=== PATIENT | female | born 1955 | race Caucasian/White ===

== ENCOUNTER 2017-04-10 10:34 | Emergency (ER) | payer MEDICAID ==
[2016-06-21 13:06] VITALS: BMI 32.0
[~2017-04-10 10:34] MED LIST: CRESTOR20 MG PO; GLUCOPHAGE1000 MG PO; HYDROCODONE-APA1 TAB PO; LOPID600 MG PO; METOPROLOL TART50 MG PO; OMEPRAZOLE20 M1 PO; TRULICITY1.5 MG/0.5 SC; ULTRAM50 MG PO; ZESTRIL40 MG PO
[2017-04-10 12:24] LABS: APPEARANCE CLEAR (CLEAR); COLOR YELLOW (YELLOW)
[2017-04-10 12:25] LABS: BILIRUBIN NEGATIVE (NEGATIVE); GLUCOSE NEGATIVE (NEGATIVE); KETONE NEGATIVE (NEGATIVE); LEUKOCYTE ESTERASE 1+ (NEGATIVE); NITRITE NEGATIVE (NEGATIVE); PROTEIN TRACE mg/dL (NEGATIVE); UROBILINOGEN NORMAL (NORMAL)
[2017-04-10 12:36] LABS: BACTERIA FEW /hpf (NONE SEEN); GRANULAR CAST RARE /lpf (NONE SEEN); HYALINE CAST OCC /lpf (NONE SEEN); MUCUS <1+ /lpf (NONE SEEN); RED CELLS - URINE OCC /hpf (0-5); WHITE CELLS - URINE 0-5 /hpf (0-5)
[2017-04-10 13:29] LABS: BASOPHILS 0.8 % (0-2); EOSINOPHILS 3.7 % (0-7); HEMATOCRIT 34.4 % (36.0-48.0); HEMOGLOBIN 11.1 g/dL (12-16); IMMATURE GRANULOCYTES 0.3 % (0-5); LYMPHOCYTES 43.8 % (15-50); MCH 26.5 pg (26.0-34.0); MCHC 32.3 g/dL (31.0-37.0); MCV 82.1 fL (80.0-100.0); MEAN PLATELET VOLUME 9.1 fL (7.4-10.4); MONOCYTES 8.6 % (2-11); NEUTROPHILS 42.8 % (40-80); PLATELET COUNT 349 10x3/uL (130-400); RBC 4.19 10x6/uL (4.00-5.40); WBC 6.3 10x3/uL (4.8-10.8)
[2017-04-10 13:48] LABS: ALBUMIN 4.1 g/dL (3.4-5.0); BILIRUBIN - DIRECT 0.05 mg/dL (0.00-0.30); BILIRUBIN - INDIRECT 0.21 mg/dL (0.00-1.00); BILIRUBIN - TOTAL 0.26 mg/dL (0.2-1.3); CALCIUM 9.2 mg/dL (8.5-10.1); CARBON DIOXIDE 23.9 mmol/L (21.0-32.0); CREATININE - SERUM 1.4 mg/dL (0.6-1.3); MAGNESIUM - SERUM 1.7 mg/dL (1.8-2.4); POTASSIUM - SERUM 4.9 mmol/L (3.5-5.1); PROTEIN - SERUM 8.1 g/dL (6.4-8.2)
== END 2017-04-10 15:27 | disposition home or self-care (01) ==
LOC: D.ER 10:34
PROVIDERS: Emergency Medicine; Physician Assistant Medical
DX: N39.0 Urinary tract infection, site not specified (principal); D35.00 Benign neoplasm of unspecified adrenal gland; R10.9 Unspecified abdominal pain

== ENCOUNTER → 2017-04-28 10:55 | Outpatient (CLI) | payer MEDICAID ==
[2016-06-21 13:06] VITALS: BMI 32.0
== END | disposition home or self-care (01) ==
LOC: D.LAB 10:55
DX: D35.00 Benign neoplasm of unspecified adrenal gland (principal)

== ENCOUNTER → 2017-06-20 15:00 | Outpatient (CLI) | payer MEDICAID ==
[2016-06-21 13:06] VITALS: BMI 32.0
== END | disposition home or self-care (01) ==
LOC: D.MAMMO 11:30
DX: Z12.31 Encounter for screening mammogram for malignant neoplasm of breast (principal)

== ENCOUNTER 2017-10-22 17:28 | Emergency (ER) | payer MEDICAID ==
[2016-06-21 13:06] VITALS: BMI 32.0
== END 2017-10-22 19:37 | disposition home or self-care (01) ==
LOC: D.ER 17:28
DX: M25.551 Pain in right hip (principal)

== ENCOUNTER → 2017-11-10 07:38 | Outpatient (CLI) | payer MEDICAID ==
[2016-06-21 13:06] VITALS: BMI 32.0
== END | disposition home or self-care (01) ==
LOC: D.NM 07:38
DX: M02.30 Reiter's disease, unspecified site (principal)

== ENCOUNTER → 2018-05-12 08:29 | Outpatient (CLI) | payer MEDICAID ==
[2016-06-21 13:06] VITALS: BMI 32.0
[2018-05-12 09:33] LABS: CREATININE - SERUM 1.2 mg/dL (0.6-1.3)
== END | disposition home or self-care (01) ==
LOC: D.CT 08:29
PROVIDERS: Family Medicine Adult Medicine
DX: D35.01 Benign neoplasm of right adrenal gland (principal)

== ENCOUNTER → 2018-05-22 09:37 | Outpatient (CLI) | payer MEDICAID ==
[2016-06-21 13:06] VITALS: BMI 32.0
== END | disposition home or self-care (01) ==
LOC: D.US 09:37
DX: I12.9 Hypertensive chronic kidney disease with stage 1 through stage 4 chronic kidney disease, or unspecified chronic kidney disease (principal); N18.3 Chronic kidney disease, stage 3 (moderate); E11.22 Type 2 diabetes mellitus with diabetic chronic kidney disease; M02.30 Reiter's disease, unspecified site; Z68.34 Body mass index [BMI] 34.0-34.9, adult

== ENCOUNTER → 2019-05-21 08:13 | Outpatient (CLI) | payer MEDICAID ==
[2016-06-21 13:06] VITALS: BMI 32.0
[~2019-05-21 08:13] MED LIST changes: +ASPIRIN81 MG PO; +BAYER CHEWABLE81 MG PO; +KLONOPIN1 MG PO; +PLAVIX75 MG PO; +TRESIBA FL100 UNIT/1 SC
--- NOTE | 2019-05-29 13:38 | ST ---
PATIENT:NARCISA ROBLES MEDICAL RECORD: [id number] SEX: F LOCATION:[facility] ORDER #: ADMISSION DATE: 05/21/19 AGE OF PATIENT: 64 REFERRING PHYSICIAN: INTERPRETING PHYSICIAN: SARANYA MCCAULEY MD DATE OF SERVICE: 05/21/2019 INDICATIONS: Angina and coronary artery disease, hypertension, hyperlipidemia, diabetes. DESCRIPTION OF THE PROCEDURE: She was exercised on a standard Agustín protocol for 5 minutes, achieving greater than 85% max target heart rate response with 27 mCi of sestamibi injected at peak stress, 8 mCi used previously for rest images. FINDINGS: Gated SPECT reveals a preserved ejection fraction at 67% with good wall motioning and thickening and brightening throughout all segments. SPECT Imaging: Cardiolite was used as myocardial perfusion agent. There is reversibility anteriorly, laterally as well as inferiorly. This includes the basal, mid, apical anterior segments basal, mid, apical inferior segments, apical lateral, mid lateral, basal lateral segments. The degree of reversibility is moderate to severe. The amount of myocardium involved is very large. OVERALL IMPRESSION: This is a high-risk markedly abnormal nuclear stress test, reversibility throughout the anterior, lateral, and inferior segments suggestive of multivessel hemodynamically significant coronary artery disease. TRANSINT:[id number] Voice Confirmation ID: [id number] DOCUMENT ID: [id number] SARANYA MCCAULEY MD at 1338 CC: FORD GARCIA MD [id number] DICTATION DATE: 05/22/19 1716 PORCELAIN SLUSHER: 05/23/19 0109 DEP CLI 05/21/19 [place] [id number]
== END | disposition home or self-care (01) ==
LOC: D.HCCARDIO 08:13
PROVIDERS: ATTEND Internal Medicine Interventional Cardiology
DX: I20.9 Angina pectoris, unspecified (principal)

== ENCOUNTER 2019-05-30 11:17 | Outpatient (CLI) | payer MEDICAID ==
[~2019-05-30] VITALS: Ht 165.1 cm; Wt 88.6 kg
--- NOTE | ~2019-05-30 | HEMODYNAMI ---
PATIENT:NARCISA ROBLES MEDICAL RECORD: [id number] : 59 LOCATION:[facility] ADMISSION DATE: 05/30/19 Generatedon:05/30/201915:08 Patient name: NARCISA ROBLES Patient #: [id number] SSN: [id number] : 1955 Date of study: 05/30/2019 Page: Of Hemodynamic Procedure Report Patient Data Patient Demographics Procedure consent was obtained First Name: NARCISA Gender: Female Last Name: MARGARET : 1955 Middle Initial: DUSTY Age: 64 year(s) Patient #: [id number] Race: Unknown SSN: [id number] Additional ID: [id number] Contact details [address]: [address] [place] [address] State: [place] City: [place] Zip code: [address] Past Medical History Allergies Allergen Reaction Date Comments Reported Other allergy 05/30/2019 sulfa Admission Admission Data Admission Date: 05/30/2019 Admission Time: 11:17 Arrival Date: 05/30/2019 Arrival Time: 0:00 Admit Source: Other Insurance Payor: Private health insurance [facility] #: [id number] Height (in.): 64.96 BSA: 1.95 (m2) Height (cm.): 165 BMI: 32.32 (kg/m2) Weight (lbs.): 194.01 Weight (kg.): 88 Lab Results Lab Result Date: 05/30/2019 Lab Result Time: 13:15 Biochemistry Name Units Result Min Max BUN mg/dl 34 --(----)-* 7 18 Creatinine mg/dl 1.5 --(----)-* 0.6 1.3 CBC Name Units Result Min Max Hematocrit % 34.2 *-(----)-- 42 54 Hemoglobin g/dl 11.3 *-(----)-- 13.5 17.5 Procedure Procedure Types Cath Procedure Diagnostic Procedure LHC LHC w/Coronaries Sedation Charges Moderate Sedation up to 30 minutes PCI Procedure Coronary Stent Coronary Stent Initial Procedure Description Procedure Date Procedure Date: 05/30/2019 Procedure Start Time: 14:31 Procedure End Time: 15:05 Procedure Staff Name Function Damian Ku MD Performing Physician Vel Vizcarra RT Monitor Jeanette Rodriguez RT Scrub Jaguar Rodriguez RN Nurse Procedure Data Cath Procedure Fluoroscopy Diagnostic fluoroscopy Total fluoroscopy Time: 8.4 time: 8.4 min min Diagnostic fluoroscopy Total fluoroscopy dose: dose: 1135 mGy 1135 mGy Contrast Material Contrast Material Type Amount (ml) Isovue 300 121 Entry Location Entry Primary Successful Side Size Upsize Upsize Entry Closure Kinney ccessful Closure Location (Fr) 1 (Fr) 2 (Fr) Remarks Device Remarks Radial Right 6 Fr Mechanical artery Short Compression Estimated blood loss: 10 ml Diagnostic catheters Device Type Used For End Catheter Placement DIAGNOSTIC [place] 110cm 5 Procedure Fr catheter ([id number]) Procedure Complications No complications Procedure Medications Medication Administration Route Dosage 0.9% NaCl I.V. 100 ml/hr Oxygen etCO2 Nasal cannula 2 l/min Heparin Flush Bag added to field 2 bags (1000units/500ml NS) Lidocaine 2% added to field 20 Radial Cocktail added to field 1 syringe (Verapamil 2mg/Nitro 400mcg/Heparin 1500units) Versed I.V. 2 mg Fentanyl I.V. 100 mcg Benadryl I.V. 50 mg Versed I.V. 2 mg Radial Cocktail I.A. 1 syringe (Verapamil 2mg/Nitro 400mcg/Heparin 1500units) Heparin Bolus I.V. 5000 units Integrilin (Bolus I.V. 7.9 ml 2mg/ml) Integrilin (Bolus wasted 2.1 ml 2mg/ml) Fentanyl I.V. 50 mcg Fentanyl I.V. 50 mcg Plavix P.O. 600 mg Hemodynamics Rest BSA: 1.95 (m2) HGB: 11.3 (g/dl) O2 Consumption: Estimated: 178.57 (ml/min) O2 Co nsumption indexed: Estimated:91.57 (ml/min/m) Heart Rate: 63 (bpm) Pressure Samples Time Site Value (mmHg) Purpose Heart Use Rate(bpm) 14:34 LV 140/22,15 Snapshot 94 14:35 AO 144/89(114) Pullback 74 Gradients Valve Time Site Site 2 Mean SEP/DFP Peak To Heart Use 1 (mmHg) (sec/min) Peak Rate (mmHg) (bpm) Aortic 14:35 LV AO 74 144/89(114) Snapshots Pre Cath Intra NCS Post Cath Vital Signs Time Heart Resp SPO2 etCO2 NIBP (mmHg) Rhythm Pain Sedation Rate (ipm) (%) (mmHg) Status Level (bpm) 14:23:10 69 12 94 0 159/113(138) NSR 0 (11) 10(A) , No pain 14:27:26 71 12 92 8.2 152/97(127) NSR 0 (11) 10(A) , No pain 14:31:38 79 15 98 0 143/95(118) NSR 0 (11) 10(A) , No pain 14:35:45 77 29 98 1.4 127/87(96) NSR 0 (11) 10(A) , No pain 14:39:53 73 17 96 32.8 133/81(100) NSR 0 (11) 10(A) , No pain 14:44:56 69 13 97 35 143/82(111) NSR 0 (11) 10(A) , No pain 14:49:08 66 18 99 33.6 151/85(116) NSR 0 (11) 10(A) , No pain 14:53:26 66 18 97 39.5 147/74(110) NSR 0 (11) 10(A) , No pain 14:57:38 65 16 98 38 151/93(127) NSR 0 (11) 10(A) , No pain 15:01:52 70 14 99 19.3 170/97(150) NSR 0 (11) 10(A) , No pain 15:06:12 63 2 99 41 167/90(144) NSR 0 (11) 10(A) , No pain Medications Time Medication Route Dose Verified Delivered Reason Not es Effectiveness by by 14:21:13 0.9% NaCl I.V. 100 Jaguar Jaguar Per physician ml/hr Jennifer Rodriguez RN RN 14:21:22 Oxygen etCO2 2 l/min Jaguar Jaguar for low 02 sats Nasal Jennifer Rodriguez cannula RN RN 14:21:32 Heparin Flush added 2 bags Jaguar Jaguar used for Bag to Jennifer Rodriguez procedure (1000units/500ml field RN RN NS) 14:21:43 Lidocaine 2% added 20ml Jaguar Jaguar for local to vial Lorigan Lorcristhian anesthetic RN RN 14:21:55 Radial Cocktail added 1 Jaguar Jaguar used for (Verapamil to syringe Jennifer Rodriguez procedure 2mg/Nitro field ARGUETA RN 400mcg/Heparin 1500units) 14:29:03 Versed I.V. 2 mg Jaguar Jaguar for sedation Jennifer Rodriguez RN, RN 14:29:11 Fentanyl I.V. 100 mcg Jaguar Jaguar for sedation Jennifer Rodriguez RN RN 14:31:14 Benadryl I.V. 50 mg Jaguar Jaguar Per physician Jennifer Rodriguez RN RN 14:31:22 Versed I.V. 2 mg Jaguar Jaguar for sedation Jennifer Rodriguez RN RN 14:33:16 Radial Cocktail I.A. 1 Jaguar Damian for (Verapamil syringe Lorigan Elmira vasodilation 2mg/Nitro ELLIE MOYA 400mcg/Heparin 1500units) 14:43:06 Heparin Bolus I.V. 5000 Jaguar Jaguar for units Jennifer Rodriguez anticoagulation RN RN 14:43:29 Integrilin I.V. 7.9 ml Jaguar Jaguar for (Bolus 2mg/ml) Jennifer Rodriguez antiplatelet RN RN therapy 14:43:41 Integrilin wasted 2.1 ml Jaguar Jaguar to sharp's (Bolus 2mg/ml) Jennifer Rodriguez RN RN 14:46:40 Fentanyl I.V. 50 mcg Jaguar Jaguar for sedation Jennifer Rodriguez RN RN 14:50:42 Fentanyl I.V. 50 mcg Jaguar Jaguar for sedation Jennifer Rodriguez RN RN 15:05:14 Plavix P.O. 600 mg Ajguar Jaguar for Jennifer Rodriguez antiplatelet RN RN therapy Procedure Log Time Note 14:00:53 Jaguar Rodriguez RN sent for patient. Start room use. 14:05:46 Informed consent obtained and on chart 14:08:30 Patient allergic to Other allergysulfa 14:08:37 Admit Source: Other 14:09:11 Arrival Date: 05/30/2019 12:00:00 AM 14:09:43 Insurance Payor : Private health insurance 14:11:47 Procedure Status Elective Heart Cath (OP). 14:11:57 Time tracking: Regular hours (M-F 7:00 - 5:00) 14:12:00 Plan of Care:Hemodynamics will remain stable., Cardiac rhythm will remain stable., Comfort level will be maintained., Respiratory function will remain adequate., Patient/ family verbilizes understanding of procedure., Procedure tolerated without complication., Recovers from procedure without complications.. 14:12:05 Patient received from Pre/Post Procedure Room to [facility] 2 Alert and oriented. Tansferred to table in Supine position. 14:12:06 Warm blankets applied, and aleta hugger turned on for patient comfort. 14:12:06 Correct patient and procedure confirmed by team. 14:12:06 ECG and BP/O2 sat monitors applied to patient. 14:12:23 H&P Date Dictated: 05/14/2019 Within 30 days and on chart., H&P Addendum completed by physician on day of procedure. (MUST COMPLETE FOR ALL OUTPATIENTS). 14:21:13 0.9% NaCl 100 ml/hr I.V. was administered by Jaguar Rodriguez RN; Per physician; Verbal order read back and verified. 14:21:22 Oxygen 2 l/min etCO2 Nasal cannula was administered by Jaguar Rodriguez RN; for low 02 sats; Verbal order read back and verified. 14:21:32 Heparin Flush Bag (1000units/500ml NS) 2 bags added to field was administered by Jaguar Rodriguez RN; used for procedure; Verbal order read back and verified. 14:21:43 Lidocaine 2% 20ml vial added to field was administered by Jaguar Rodriguez RN; for local anesthetic; Verbal order read back and verified. 14:21:55 Radial Cocktail (Verapamil 2mg/Nitro 400mcg/Heparin 1500units) 1 syringe added to field was administered by Jaguar Rodriguez RN; used for procedure; Verbal order read back and verified. 14:22:00 Vital chart was started 14:24:21 Baseline sample Acquired. 14:24:25 Rhythm: sinus rhythm 14:24:27 Full Disclosure recording started 14:24:28 Pre-procedure instructions explained to patient. 14:24:28 Pre-op teaching completed and patient verbalized understanding. 14:24:32 Family in waiting room. 14:24:33 Patient NPO since Midnight. 14:24:34 Is the patient allergic to Iodine/contrast media? No. 14:24:35 Is patient on blood thinner?No 14:24:36 Patient diabetic? Yes. 14:24:37 If diabetic: On Metformin? No 14:24:41 Previous problem with sedation/anesthesia? No ? 14:24:43 Snore? Yes 14:24:43 Sleep apnea? No 14:24:44 Deviated septum? No 14:24:45 Opens mouth fully? Yes 14:24:45 Sticks out tongue? Yes 14:24:47 Airway obstruction? No ? 14:24:51 Dentures? No ? 14:24:54 Pre procedure: right dorsailis pedis pulse 2+ Normal; easily identifiable; not easily obliterated 14:24:59 Patient pain scale 5/10 ?. 14:25:05 IV patent on arrival in right antecubital with 0.9% NaCl at [facility]. 14:26:06 Lab Result : BUN 34 mg/dl 14:26:06 Lab Result : Hemoglobin 11.3 g/dl 14:26:06 Lab Result : Creatinine 1.5 mg/dl 14:26:06 Lab Result : Hematocrit 34.2 % 14:26:09 Lab results completed and on chart. 14:26:11 Right Radial & Right Groin area was prepped with chlora-prep and draped in sterile fashion 14:26:12 Alarms reviewed by R. N. 14:26:12 Sharps counted by scrub and verified by R.N. 14:26:14 Use device set Radial Dx or PCI 14:26:15 ACIST Syringe (51123) opened to sterile field. 14:26:15 Medline Cath Pack ([id number]) opened to sterile field. 14:26:16 Bag Decanter () opened to sterile field. 14:26:16 ACIST Hand Control (60299) opened to sterile field. 14:26:16 ACIST Manifold (18139) opened to sterile field. 14:26:17 Tegaderm 4 x 4 (1626W) opened to sterile field. 14:26:17 MBrace Wrist Support ([id number]) opened to sterile field. 14:26:18 NEEDLE Cook 21G 4cm Radial (I50383) opened to sterile field. 14:26:19 SHEATH 6FR RAIN (4711073) opened to sterile field. 14:26:20 EMERALD Guide Wire (583-830) opened to sterile field. 14:26: Physician arrived 14:: --------ALL STOP TIME OUT------ : Final Timeout: patient, procedure, and site verified with staff and physician. All members of the team are in agreement. 14::42 Right Radial & Right Groin site verified by team. 14::45 Fire Safety Assessment: A--An alcohol-based skin anteseptic being used preoperatively., C--Open oxygen or nitrous oxide is being used., D--An ESU, laser, or fiber-optic light is being used. 14::48 Physical assessment completed. ASA score P 2 - A patient with mild systemic disease as per Damian Ku MD. 14:27:06 3b) 30-44 Moderately reduced kidney function. 14::48 Maximum allowable contrast dose (3.7 X eGFR X 0.75)102 ml. 14:28:00 Sedation plan: IV Moderate Sedation Medication:Versed, Fentanyl 14:29:02 Patient Weight : 194.01 lbs 14:29:03 Versed 2 mg I.V. was administered by Jaguar Rodriguez RN; for sedation; Verbal order read back and verified. 14:29:05 Patient Height : 64.96 inches 14:29:11 Fentanyl 100 mcg I.V. was administered by Jaguar Rodriguez RN; for sedation; Verbal order read back and verified. 14:31:14 Benadryl 50 mg I.V. was administered by Jaguar Rodriguez RN; Per physician; Verbal order read back and verified. 14:31:22 Versed 2 mg I.V. was administered by Jaguar Rodriguez RN; for sedation; Verbal order read back and verified. 14:31:23 Procedure started. 14::27 Local anesthetic to right radial artery with Lidocaine 2% by Damian Ku MD.INITIAL ACCESS ONLY 14:31:37 A 6 Fr Short sheath was inserted into the Right Radial artery 14::39 Zero performed for pressure channel P1 14:33:16 Radial Cocktail (Verapamil 2mg/Nitro 400mcg/Heparin 1500units) 1 syringe I.A. was administered by Damian Ku MD; for vasodilation; Verbal order read back and verified. 14:33:55 A DIAGNOSTIC [place] 110cm 5 Fr catheter (970365) was advanced over the wire and used for Procedure. 14:34:44 LV gram done using HOOD 14:34:46 Injector settings: Ml/sec: 5, Volume: 15, 14:34:47 LV hemodynamics recorded. 14:34:52 EF : 55 % 14:36:17 RCA angiography performed. 14:36:48 LCA angiography performed. 14:38:35 Catheter removed. 14:38:41 INFLATOR Merit BasixCompak (ZF8088) opened to sterile field. 14:38:54 WHISPER 300cm guide wire ([id number]) opened to sterile field. 14:39:38 GUIDE 6FR XBLAD 3.5 catheter ([id number]) opened to sterile field. 14:41:19 6 Fr XBLAD 3.5 guide catheter was inserted over the wire 14:41:22 WHISPER wire advanced. 14:42:45 Pre PCI Site: [place] pLAD has 80% stenosis. 14:42:47 ACC Pre-intervention [place] Flow is 3. 14:43:06 Heparin Bolus 5000 units I.V. was administered by Jaguar Rodriguez RN; for anticoagulation; Verbal order read back and verified. 14:43:29 Integrilin (Bolus 2mg/ml) 7.9 ml I.V. was administered by Jaguar Rodriguez RN; for antiplatelet therapy; Verbal order read back and verified. 14:43:41 Integrilin (Bolus 2mg/ml) 2.1 ml wasted was administered by Jaguar Rodriguez RN; to sharp's; Verbal order read back and verified. 14:46:40 Fentanyl 50 mcg I.V. was administered by Jaguar Rodriguez RN; for sedation; Verbal order read back and verified. 14:47:16 The COBRA RX 3.0 X 30 Stent was advanced then removed because of failure to cross lesion 14:49:26 CHOICE PT Extra Support J 300cm guide wire ([id number]) opened to sterile field. 14:50:12 Whisper wire exchanged for Choice pt es 14:50:30 Inflate balloon Inflation number: 1 A EMERGE OTW 3.0 x 15 balloon ([id number]) was prepped and advanced across the Prox LAD , then inflated to 10 RIK for 0:30 (min:sec) . 14:50:42 Fentanyl 50 mcg I.V. was administered by Jaguar Rodriguez RN; for sedation; Verbal order read back and verified. 14:51:25 Inflation number: 2 The EMERGE OTW 3.0 x 15 balloon ([id number]) was reinflated across the Prox LAD , to 12 RIK for 0:30 (min:sec) . 14:52:57 Balloon removed over the wire. 14:54:22 Place stent Inflation Number: 3 A COBRA RX 3.0 X 30 Stent was prepped and advanced across the Prox LAD . The stent was deployed at 14 RIK for 0:10 (min:sec) . 14:54:30 Stent catheter was removed intact over wire. 14:58:07 Place stent Inflation Number: 4 A COBRA RX 3.0 X 24 Stent was prepped and advanced across the Prox LAD . The stent was deployed at 14 RIK for 0:30 (min:sec) . 15:01:25 Stent catheter was removed intact over wire. 15:01:26 Wire removed. 15:01:30 Guide catheter removed. 15:01:35 ZEPHYR REGULAR TR BAND (472386) opened to sterile field. 15:01:48 Sheath removed intact; hemostasis achieved with Mechanical Compression to the Right Radial artery. 15:01:50 Procedure ended.(Physican Out) 15:03:28 Fluoroscopy time 08.40 minutes. 15:03:35 Flurop Dose total: 1135 15:03:35 Fluoroscopy dose: 1135 mGy 15:03:43 Dose Area Product 36877 mGy/cm. 15:03:53 Contrast amount:Isovue 300 121ml. 15:03:55 Maximum allowable dose exceeded? Yes. 15:03:56 Sharps counted by scrub and verified by R.N. 15:03:56 Insertion/operative site no bleeding no hematoma. 15:04:02 [place] band inflated with 12cc of air. 15:04:08 Post right radial artery:stable, soft, clean and dry 15:04:14 Post Procedure Pulses reassessed and unchanged 15:04:16 Post-procedure physical assessment completed. ASA score P 2 - A patient with mild systemic disease as per Damian Ku MD. 15:04:18 Post procedure rhythm: unchanged. 15:04:20 Estimated blood loss: 10 ml 15:04:21 Post procedure instruction explained to patient.Patient verbalizes understanding. 15:04:22 Patient needs reinforcement of post procedure teaching. 15:04:31 Procedure type changed to Cath procedure, Diagnostic procedure, LHC, LHC w/Coronaries, Sedation Charges, Moderate Sedation up to 30 minutes, PCI procedure, Coronary Stent, Coronary Stent Initial 15:05:14 Plavix 600 mg P.O. was administered by Jaguar Rodriguez RN; for antiplatelet therapy; Verbal order read back and verified. 15:05:42 Procedure and supply charges have been captured, reviewed, submitted and are correct. 15:05:44 Procedure Complication : No complications 15:05:46 Vital chart was stopped 15:05:47 See physician's report for complete and final results. 15:05:50 Report given to Pre/Post Procedure Room. 15:05:52 Patient transfered to Pre/Post Procedure Room with Stretcher. 15:05:54 Procedure ended. 15:05:54 Full Disclosure recording stopped 15:06:00 ACC-PCI Only Patient was given prescriptions, or instructed by Damian Ku MD to start/continue the following medications upon discharge: Aspirin, Plavix 15:06:02 End room use (Document Last) 15:06:55 Post PCI Site: [place] pLAD has 0% stenosis. 15:06:58 ACC Post-intervention [place] Flow is 3. 15:07:04 ACCDominant side:Co-Dominant Intervention Summary Intervention Notes Time ActionType Lesion and Equipment Action# Pressure Duration Attributes Used 14:47:16 Discard COBRA RX 3.0 Stent X 30 Stent 14:50:30 Inflate Prox LAD EMERGE OTW 1 10 00:30 balloon 3.0 x 15 balloon ([id number]) 14:51:25 Reinflate Prox LAD EMERGE OTW 2 12 00:30 balloon 3.0 x 15 balloon ([id number]) 14:54:22 Place stent Prox LAD COBRA RX 3.0 3 14 00:10 X 30 Stent 14:58:07 Place stent Prox LAD COBRA RX 3.0 4 14 00:30 X 24 Stent Device Usage Item Name Manufacture Quantity Catalog Number [facility] Minimal Lot# / Charge Number Stock Stock Serial# Code ACIST Syringe Acist 1 42614 758314 203292 935485 20 (80191) BiteHunter Medline Cath Medline 1 [id number] 091582 29566 358825 5 Pack ([id number]) Bag Decanter Microtek 1 829905 65765 090525 5 (2001S) Medical Inc. ACIST Hand Acist 1 74209 929402 768338 812858 5 Control Medical (76313) Systems Inc ACIST Manifold Acist 1 49449 685300 421736 008139 5 (19443) Medical Systems Inc Tegaderm 4 x 4 3M 1 1626W 616998 795361 343317 5 (1626W) MBrace Wrist Advanced 1 140-0250-00 160899 20718 649245 5 Support Vascular (665120974) Dynamics NEEDLE FanKave Medical 1 P21996 575044 809794 484271 5 21G 4cm Radial (V92477) SHEATH 6FR Cardinal 1 2071551 573857 0102834 381577 5 RAIN (3507558) Health EMERALD Guide Cardinal 1 502-455 276040 043802 973318 5 Wire (502455) Health DIAGNOSTIC Terumo 1 40-7783 134453 340829 427713 5 [place] 110cm 5 Fr catheter (242275) INFLATOR Merit Merit 1 II5646 693579 047320 962769 15 BasixAngel AlertsmoAluwave Medical (BC6806) WHISPER 300cm Hernandez 1 [id number] 163825 953660 897530 5 guide wire Vascular (4551186JY) GUIDE 6FR Cardinal 1 11953352 554543 695829 035064 10 XBLAD 3.5 Health catheter (31351319) COBRA RX 3.0 X Celonova 1 210321 712041894 144551 92 2 [id number] 30 stent Biosciences () CHOICE PT [place] 1 [id number] 246596 566520 514474 5 Extra Support Scientific J 300cm guide wire ([id number]) EMERGE OTW 3.0 [place] 1 [id number] 070863 873352 311637 5 [id number] x 15 balloon Scientific ([id number]) COBRA RX 3.0 X Celonova 1 766241 890542726 913329 5 [id number] 24 stent Biosciences () ZEPHYR REGULAR Cardinal 1 906386 720705 6681448 292188 5 [facility] (151216) Signature Audit [place] Stage Time Signature Unsigned Intra-Procedure 05/30/2019 Jaguar 3:07:26 PM Jennifer ARGUETA Intra-Procedure 05/30/2019 Damian Gudino 3:07:50 PM Niranjan MOYA Intra-Procedure 05/30/2019 Vel Vizcarra 3:08:06 PM RT(R) [facility] [address] [place] [address]
[~2019-05-30 11:17] MED LIST changes: -ASPIRIN81 MG PO; -BAYER CHEWABLE81 MG PO; -KLONOPIN1 MG PO; -PLAVIX75 MG PO; -TRESIBA FL100 UNIT/1 SC
[2019-05-30] MEDS ORDERED: KLONOPIN1 MG PO (12:53)
[2019-05-30] MEDS ORDERED: TRESIBA FL100 UNIT/1 SC (12:54)
[2019-05-30 13:23] VITALS: BP 137/86; Ht 165.1 cm; Wt 88.6 kg
[2019-05-30 13:32] LABS: BASOPHILS 0.6 % (0-2); EOSINOPHILS 3.2 % (0-7); HEMATOCRIT 34.2 % (36.0-48.0); HEMOGLOBIN 11.3 g/dL (12-16); IMMATURE GRANULOCYTES 0.4 % (0-5); LYMPHOCYTES 29.9 % (15-50); MCH 26.2 pg (26.0-34.0); MCV 79.4 fL (80.0-100.0); MONOCYTES 7.4 % (2-11); NEUTROPHILS 58.5 % (40-80); PLATELET COUNT 357 10x3/uL (130-400); RBC 4.31 10x6/uL (4.00-5.40); WBC 7.2 10x3/uL (4.8-10.8)
[2019-05-30 13:39] LABS: CALCIUM 9.3 mg/dL (8.5-10.1); CHOL - HDL RATIO 3.2 ratio (2.3-4.1); CREATININE - SERUM 1.5 mg/dL (0.6-1.3); LDL-HDL RATIO 1.6 ratio (1.5-3.5)
--- NOTE | 2019-05-30 15:15 | NUR ---
PATIENT ARRIVED TO ROOM 2, PLACED ON CM. VSS. RIGHT RADIAL SITE IS CDI, NO S/S OF BLEEDING OR HEMATOMA.
--- NOTE | 2019-05-30 15:30 | NUR ---
PATIENT AWAKE, C/O SMALL AMOUNT OF PAIN IN RIGHT WRIST. Z BAND IN PLACE, NO S/S OF BLEEDING OR HEMATOMA. NO N/V. TOLERATING PO FLUIDS.
[2019-05-30] MEDS ORDERED: PLAVIX75 MG PO (15:47)
[2019-05-30] MEDS ORDERED: ASPIRIN81 MG PO (15:47)
--- NOTE | 2019-05-30 16:00 | NUR ---
PATIENT AWAKE, VSS ON ROOM AIR. SPOKE WITH PHYSICIAN, SEE ORDER FOR PAIN MEDICATION. RIGHT Z BAND IN PLACE, NO S/S OF BLEEDING OR HEMATOMA.
--- NOTE | 2019-05-30 16:30 | NUR ---
PATIENT AWAKE, NORCO 10 GIVEN TO PATIENT ORDERED. VSS ON ROOM AIR. TOLERATING PO FLUIDS,NO N/V. RIGHT Z BAND IN PLACE, NO S/S OF BLEEDING OR HEMATOMA.
--- NOTE | 2019-05-30 17:00 | NUR ---
PATIENT STATES THAT PAIN IS 'MUCH BETTER' AFTER MEDICATION. VSS ON ROOM AIR. RIGHT Z BAND IN PLACE, NO S/S OF BLEEDING OR HEMATOMA.
--- NOTE | 2019-05-30 17:30 | NUR ---
PATIENT AWAKE, VSS ON ROOM AIR. RIGHT Z BAND IN PLACE, NO S/S OF BLEEDING OR HEMATOMA. NO C/O PAIN, NUMBNESS, OR TINGLING. NO N/V. FAMILY UPDATED ON PHONE BY PATIENT - AWARE THAT PATIENT WILL BE READY TO GO HOME AT 1900.
--- NOTE | 2019-05-30 18:00 | NUR ---
PATIENT AWAKE, SITTING UP IN BED. VSS ON ROOM AIR. 4CC OF AIR REMOVED FROM RIGHT Z BAND, NO S/S OF BLEEDING OR HEMATOMA. NO C/O PAIN, NUMBNESS, OR TINGLING. EATING SANDWICH AND GRAPES, NO N/V.
--- NOTE | 2019-05-30 18:30 | NUR ---
4CC OF AIR REMOVED FROM Z BAND, NO S/S OF BLEEDING OR HEMATOMA. NO C/O PAIN, NUMBNESS, OR TINGLING. VSS ON ROOM AIR. TOLERATING PO FLUIDS AND FOOD, NO N/V.
--- NOTE | 2019-05-30 18:45 | NUR ---
WRITTEN AND VERBAL DISCHARGE INSTRUCTIONS GIVEN, PATIENT VOICES UNDERSTANDING. VSS ON ROOM AIR. IV REMOVED. PATIENT REMOVED FROM MONITORS TO GET DRESSED. Z BAND REMOVED, DRESSING APPLIED IS CDI, NO S/S OF BLEEDING OR HEMATOMA.
--- NOTE | 2019-05-30 19:00 | NUR ---
PATIENT VOIDED WITHOUT DIFFICULTY. RIGHT RADIAL DRESSING IS CDI, NO S/S OF BLEEDING OR HEMATOMA. PATIENT TRANSPORTED VIA WHEELCHAIR TO CAR WITH FAMILY DRIVING, ALL BELONGINGS WITH PATIENT.
--- NOTE | 2019-05-31 13:08 | OP ---
PATIENT NAME: NARCISA ROBLES MEDICAL RECORD: [id number] :59 LOCATION:D.CAT ADMISSION DATE: SURGEON: OBDULIO NOBLES MD DATE OF OPERATION: 05/30/2019 PROCEDURE: Left heart catheterization, selective coronary angiography plus PTCA stent to the LAD, right radial approach. CATHETERS: Radial sheath, [place] catheter. The procedure was well tolerated. We proceeded with PTCA stenting of LAD. FINDINGS: Left ventriculography in 30-degree HOOD view: Normal wall motion and normal systolic function. CORONARY ANATOMY: LEFT MAIN: Left main is free of disease. LAD: Has a long diffuse stenosis from its proximal third of the mid portion of vessel of 90%. CIRCUMFLEX: Moderate size circumflex, free of disease. RIGHT CORONARY ARTERY: Has a long diffuse stenosis approximately 80%. IMPRESSION: A 2-vessel disease. PLAN: Intervention of the LAD right in a staged fashion. DESCRIPTION OF PROCEDURE: Using indwelling radial sheath, a XB LAD guiding catheter provided excellent guide catheter support, followed by 300 cm Whisper wire was placed across the tightly occluded LAD down this portion of vessel. Then, we placed a 3.0 x 15 mm [place] balloon down distal part of the vessel and using the balloon itself as an exchange catheter, changed out to a PT export wire. Then, cutting back the balloon was inflated up and down the diffuse disease in the LAD up to 10 atmospheres. Next, stents were deployed in the following fashion. A 3.0 x 30 mm and a 3.0 x 24 mm Cobra stents up to 14 atmospheres. Each inflation lasting 45 seconds. Final angiography shows excellent resolution of 90% stenosis, no significant residual. [place] flow was 3 throughout the procedure. Heparin and Integrilin were used during the case. Plavix was loaded in the lab. Sheath was closed with TR band. TRANSINT:[id number] Voice Confirmation ID: [id number] DOCUMENT ID: [id number] OBDULIO NOBLES MD at 1308 CC: [id number] DICTATION DATE: 05/30/19 1507 PREPARATOR: 05/30/19 6342 DEP CLI 05/30/19 [facility] [address] [place] [address]
== END 2019-05-30 19:00 ==
LOC: D.CATH 11:17
PROVIDERS: ATTEND Internal Medicine Interventional Cardiology
DX: I25.110 Atherosclerotic heart disease of native coronary artery with unstable angina pectoris (principal); R94.30 Abnormal result of cardiovascular function study, unspecified

== ENCOUNTER 2019-06-05 10:36 | Outpatient (CLI) | payer MEDICAID ==
[~2019-06-05] VITALS: Ht 165.1 cm; Wt 90.0 kg
--- NOTE | ~2019-06-05 | HEMODYNAMI ---
PATIENT:NARCISA ROBLES MEDICAL RECORD: [id number] : 59 LOCATION:[place] ADMISSION DATE: 06/05/19 Generatedon:06/05/201913:43 Patient name: NARCISA ROBLES Patient #: [id number] SSN: [id number] : 1955 Date of study: 06/05/2019 Page: Of Hemodynamic Procedure Report Patient Data Patient Demographics Procedure consent was obtained First Name: NARCISA Gender: Female Last Name: MARGARET : 1955 [facility] Initial: DUSTY Age: 64 year(s) Patient #: [id number] Race: Unknown SSN: [id number] Additional ID: [id number] Contact details [address]: [address] [place] [address] State: [place] City: [place] Zip code: [address] Past Medical History Allergies Allergen Reaction Date Comments Reported Other allergy 05/30/2019 sulfa Sulfa drugs 06/05/2019 Admission Admission Data Admission Date: 06/05/2019 Admission Time: 10:36 Arrival Date: 06/05/2019 Arrival Time: 0:00 Insurance Payor: Private health insurance [facility] #: [id number] Height (in.): 65 BSA: 1.97 (m2) Height (cm.): 165.1 BMI: 33.02 (kg/m2) Weight (lbs.): 198.42 Weight (kg.): 90 Lab Results Lab Result Date: 06/05/2019 Lab Result Time: 0:00 Biochemistry Name Units Result Min Max BUN mg/dl 40 --(----)-* 7 18 Creatinine mg/dl 1.5 --(----)-* 0.6 1.3 eGFR ml/min 37 *-(----)-- 90 120 NONAFRICAN CBC Name Units Result Min Max Hematocrit % 33.6 *-(----)-- 42 54 Hemoglobin g/dl 10.9 *-(----)-- 13.5 17.5 Procedure Procedure Types Cath Procedure Diagnostic Procedure Sedation Charges Moderate Sedation up to 15 minutes PCI Procedure Coronary Stent Coronary Stent Initial Procedure Description Procedure Date Procedure Date: 06/05/2019 Procedure Start Time: 13:13 Procedure End Time: 13:40 Procedure Staff Name Function Sena Serrano RT Scrub Shelby Mi RT Monitor Lissette Sandhu RN Nurse Damian Ku MD Performing Physician Procedure Data Cath Procedure Fluoroscopy Diagnostic fluoroscopy Total fluoroscopy Time: 7 time: 7 min min Diagnostic fluoroscopy Total fluoroscopy dose: 418 dose: 418 mGy mGy Entry Location Entry Primary Successful Side Size Upsize Upsize Entry Closure Kinney ccessful Closure Location (Fr) 1 (Fr) 2 (Fr) Remarks Device Remarks Radial Right 6 Fr Mechanical artery Short Compression Estimated blood loss: 10 ml Procedure Complications No complications Procedure Medications Medication Administration Route Dosage 0.9% NaCl I.V. 100 ml/hr Oxygen etCO2 Nasal cannula 2 l/min Lidocaine 2% added to field 20 Heparin Flush Bag added to field 2 bags (1000units/500ml NS) Radial Cocktail added to field 1 syringe (Verapamil 2mg/Nitro 400mcg/Heparin 1500units) Versed I.V. 2 mg Fentanyl I.V. 100 mcg Versed I.V. 2 mg Fentanyl I.V. 50 mcg Heparin Bolus I.V. 4000 units Plavix P.O. 75 mg Versed I.V. 2 mg Fentanyl I.V. 50 mcg Hemodynamics Rest BSA: 1.97 (m2) HGB: 10.9 (g/dl) O2 Consumption: Estimated: 187.44 (ml/min) O2 Co nsumption indexed: Estimated:95.15 (ml/min/m) Heart Rate: 72 (bpm) Snapshots Pre Cath Intra NCS Post Cath Vital Signs Time Heart Resp SPO2 etCO2 NIBP (mmHg) Rhythm Pain Sedation Rate (ipm) (%) (mmHg) Status Level (bpm) 13:00:34 81 15 100 35 155/91(127) NSR 0 (11) 10(A) , No pain 13:04:50 75 18 100 28 136/81(107) NSR 0 (11) 10(A) , No pain 13:09:04 69 14 99 34.5 120/74(109) NSR 0 (11) 10(A) , No pain 13:13:20 75 19 100 41.2 116/69(96) NSR 0 (11) 10(A) , No pain 13:17:34 68 14 100 43.5 96/56(76) NSR 0 (11) 10(A) , No pain 13:21:46 65 16 99 39.7 92/54(65) NSR 0 (11) 10(A) , No pain 13:26:41 78 13 99 31.5 139/75(110) NSR 0 (11) 10(A) , No pain 13:30:57 75 13 97 42 130/77(86) NSR 0 (11) 10(A) , No pain 13:35:15 72 8 99 41.2 134/77(104) NSR 0 (11) 10(A) , No pain 13:39:35 74 18 99 31.5 118/68(99) NSR 0 (11) 10(A) , No pain Medications Time Medication Route Dose Verified Delivered Reason Not es Effectiveness by by 12:59:18 Plavix P.O. 75 mg Damian Lissette for ElmiraNiranjan Sandhu antiplatelet RN therapy 12:59:26 0.9% NaCl I.V. 100 Damian Lissette used for ml/hr ElmiraNiranjan Sandhu procedure MD ARGUETA 12:59:34 Oxygen etCO2 2 l/min Damian Gerarda used for Nasal Elmira Edson procedure cannula MD ARGUETA 12:59:39 Lidocaine 2% added 20ml Damian Salgado for local [facility] MD MOYA 12:59:43 Heparin Flush added 2 bags Damian Salgado used for Bag to [facility] procedure (1000units/500ml field MD MOYA NS) 12:59:48 Radial Cocktail added 1 Damian Salgado used for (Verapamil to syringe Elmira Elmira procedure 2mg/Nitro field MD MOYA 400mcg/Heparin 1500units) 13:09:09 Versed I.V. 2 mg Damian Lissette for sedation St Niranjan Sandhu MD, RN 13:09:16 Fentanyl I.V. 100 mcg Damian Lissette for sedation St Niranjan Sandhu MD, RN 13:14:52 Versed I.V. 2 mg Damian Lissette for sedation St Niranjan Sandhu MD, RN 13:14:57 Fentanyl I.V. 50 mcg Damian Lissette for sedation St Niranjan Sandhu MD, RN 13:15:02 Heparin Bolus I.V. 4000 Damian Mclaughlin for bacilio ified units St Niranjan Sandhu anticoagulation with Dr. MD ELLIE Joe 13:23:57 Versed I.V. 2 mg Damian Mclaughlin for sedation St Niranjan Sandhu MD, RN 13:24:00 Fentanyl I.V. 50 mcg Damian Mclaughlin for sedation St Niranjan Sandhu MD, RN Procedure Log Time Note 12:20:48 Informed consent obtained and on chart 12:23:32 Patient Weight : 198.42 lbs 12:23:39 Patient Height : 65 inches 12:23:51 Arrival Date: 06/05/2019 12:00:00 AM 12:24:05 Insurance Payor : Private health insurance 12:25:17 Lab Result : Hematocrit 33.6 % 12:25:17 Lab Result : eGFR NONAFRICAN 37 ml/min 12:25:17 Lab Result : Hemoglobin 10.9 g/dl 12:25:17 Lab Result : BUN 40 mg/dl 12:25:17 Lab Result : Creatinine 1.5 mg/dl 12:40:52 Procedure Status Elective Heart Cath (OP). 12:40:53 Time tracking: Regular hours (M-F 7:00 - 5:00) 12:40:57 Plan of Care:Hemodynamics will remain stable., Cardiac rhythm will remain stable., Comfort level will be maintained., Respiratory function will remain adequate., Patient/ family verbilizes understanding of procedure., Procedure tolerated without complication., Recovers from procedure without complications.. 12:41:21 Sena CHAUDHARY(R) sent for patient. Start room use. 12:49:44 Patient received from Pre/Post Procedure Room to CCL 1 Alert and oriented. Tansferred to table in Supine position. 12:49:45 Warm blankets applied, and aleta hugger turned on for patient comfort. 12:49:45 Correct patient and procedure confirmed by team. 12:49:46 ECG and BP/O2 sat monitors applied to patient. 12:59:17 Vital chart was started 12:59:18 Plavix 75 mg P.O. was administered by Lissette Sandhu RN; for antiplatelet therapy; Verbal order read back and verified. 12:59:26 0.9% NaCl 100 ml/hr I.V. was administered by Lissette Edson RN; used for procedure; Verbal order read back and verified. 12:59:34 Oxygen 2 l/min etCO2 Nasal cannula was administered by Lissette Sandhu RN; used for procedure; Verbal order read back and verified. 12:59:39 Lidocaine 2% 20ml vial added to field was administered by Damian Ku MD; for local anesthetic; Verbal order read back and verified. 12:59:43 Heparin Flush Bag (1000units/500ml NS) 2 bags added to field was administered by Damian Ku MD; used for procedure; Verbal order read back and verified. 12:59:48 Radial Cocktail (Verapamil 2mg/Nitro 400mcg/Heparin 1500units) 1 syringe added to field was administered by Damian Ku MD; used for procedure; Verbal order read back and verified. 13:02:32 Baseline sample Acquired. 13:02:50 Rhythm: sinus rhythm 13:02:52 Full Disclosure recording started 13:02:57 H&P Date Dictated: 06/05/2019 New H&P dictated by physician.. 13:03:25 Pre-procedure instructions explained to patient. 13:03:25 Pre-op teaching completed and patient verbalized understanding. 13:03:32 Family in patients room. 13:03:33 Patient NPO since Midnight. 13:03:43 Patient allergic to Sulfa drugs 13:03:51 Is the patient allergic to Iodine/contrast media? No. 13:03:55 Is patient on blood thinner?Yes 13:04:00 ACC The patient was administered the following blood thiners within the last 24 hours: ACCPlavix 13:04:05 Patient diabetic? Yes. 13:04:07 If diabetic: On Metformin? No 13:04:13 Patient not . Patient is over age 55. 13:04:20 Previous problem with sedation/anesthesia? No ? 13:04:27 Snore? Yes 13:04:28 Sleep apnea? No 13:04:29 Deviated septum? No 13:04:30 Opens mouth fully? Yes 13:04:31 Sticks out tongue? Yes 13:04:33 Airway obstruction? No ? 13:04:35 Dentures? No ? 13:05:05 Pre procedure: right dorsailis pedis pulse 1+ Palpable, but thready & weak; easily obliterated 13:05:08 Modified Iker's test Ulnar < 7 seconds 13:05:13 Patient pain scale 0/10 ?. 13:05:22 IV patent on arrival in right antecubital with 0.9% NaCl at [facility]. 13:05:25 Lab results completed and on chart. 13:05:30 Right Radial & Right Groin area was prepped with chlora-prep and draped in sterile fashion 13:05:31 Alarms reviewed by R. N. 13:05:31 Sharps counted by scrub and verified by R.N. 13:05:38 Use device set CATH PACK 13:05:40 ACIST Syringe (61834) opened to sterile field. 13:05:40 ACIST Hand Control (15863) opened to sterile field. 13:05:40 ACIST Manifold (95375) opened to sterile field. 13:05:41 Medline Cath Pack ([id number]) opened to sterile field. 13:05:41 Bag Decanter (2002S) opened to sterile field. 13:05:41 [place]D Guide Wire (502-222) opened to sterile field. 13:06:03 SHEATH 6FR RAIN ([id number]) opened to sterile field. 13:06:03 INFLATOR Merit BasixCompak (WP0732) opened to sterile field. 13:06:04 WHISPER 300cm guide wire ([id number]) opened to sterile field. 13:06:04 GUIDE 6FR HS I catheter (LA6HSI) opened to sterile field. 13:06:29 MBrace Wrist Support ([id number]) opened to sterile field. 13:08:35 --------ALL STOP TIME OUT------ 13:08:36 Final Timeout: patient, procedure, and site verified with staff and physician. All members of the team are in agreement. 13:08:37 Right Radial & Right Groin site verified by team. 13:08:40 Fire Safety Assessment: A--An alcohol-based skin anteseptic being used preoperatively., C--Open oxygen or nitrous oxide is being used., D--An ESU, laser, or fiber-optic light is being used. 13:08:46 Physical assessment completed. ASA score P 2 - A patient with mild systemic disease as per Damian Ku MD. 13:08:50 3b) 30-44 Moderately reduced kidney function. 13:08:55 Maximum allowable contrast dose (3.7 X eGFR X 0.75)103 ml. 13:08:59 Sedation plan: IV Moderate Sedation Medication:Versed, Fentanyl 13:09:09 Versed 2 mg I.V. was administered by Lissette Sandhu RN; for sedation; Verbal order read back and verified. 13:09:16 Fentanyl 100 mcg I.V. was administered by Lissette Sandhu RN; for sedation; Verbal order read back and verified. 13:11:23 Zero performed for pressure channel P1 13:12:35 Procedure started. 13:12:45 Zero performed for pressure channel P1 13:13:12 Local anesthetic to right radial artery with Lidocaine 2% by Damian Ku MD.INITIAL ACCESS ONLY 13:14:52 Versed 2 mg I.V. was administered by Lissette Sandhu RN; for sedation; Verbal order read back and verified. 13:14:56 A 6 Fr Short sheath was inserted into the Right Radial artery 13:14:57 Fentanyl 50 mcg I.V. was administered by Lissette Sandhu RN; for sedation; Verbal order read back and verified. 13:15:02 Heparin Bolus 4000 units I.V. was administered by Lissette Sandhu RN; for anticoagulation; verified with Dr. Joe Verbal order read back and verified. 13:16:26 6 Fr HS1 guide catheter was inserted over the wire 13:19:15 WHISPER 300 wire advanced. 13:22:49 Wire advanced across lesion. 13:23:57 Versed 2 mg I.V. was administered by Lissette Sandhu RN; for sedation; Verbal order read back and verified. 13:24:00 Fentanyl 50 mcg I.V. was administered by Lissette Sandhu RN; for sedation; Verbal order read back and verified. 13:24:00 Inflate balloon Inflation number: 1 A EMERGE OTW 3.0 x 15 balloon ([id number]) was prepped and advanced across the Mid RCA , then inflated to 8 RIK for 0:15 (min:sec) . 13:24:36 Inflation number: 2 The EMERGE OTW 3.0 x 15 balloon ([id number]) was reinflated across the Mid RCA , to 8 RIK for 0:15 (min:sec) . 13:25:04 Inflation number: 3 The EMERGE OTW 3.0 x 15 balloon ([id number]) was reinflated across the Mid RCA , to 8 RIK for 0:15 (min:sec) . 13:25:06 Balloon removed over the wire. 13:31:42 Place stent Inflation Number: 4 A THERESA OTW 3.5 x 34 stent ([id number]) was prepped and advanced across the Mid RCA . The stent was deployed at 14 RIK for 0:15 (min:sec) . 13:32:22 Stent catheter was removed intact over wire. 13:32:22 Wire removed. 13:32:23 Guide catheter removed. 13:32:48 Procedure ended.(Physican Out) 13:33:38 ZEPHYR REGULAR TR BAND (139414) opened to sterile field. 13:33:48 Sheath removed intact; hemostasis achieved with Mechanical Compression to the Right Radial artery. 13:34:36 Fluoroscopy time 07.00 minutes. 13:34:43 Flurop Dose total: 418 13:34:43 Fluoroscopy dose: 418 mGy 13:34:51 Dose Area Product 97245 mGy/cm. 13:37:13 [place] band inflated with 10cc of air. 13:37:19 Post-procedure physical assessment completed. ASA score P 2 - A patient with mild systemic disease as per Damian Ku MD. 13:37:26 Post procedure rhythm: sinus rhythm 13:37:29 Estimated blood loss: 10 ml 13:37:30 Post procedure instruction explained to patient.Patient verbalizes understanding. 13:37:30 Patient needs reinforcement of post procedure teaching. 13:39:49 Procedure type changed to Cath procedure, Diagnostic procedure, Sedation Charges, Moderate Sedation up to 15 minutes, PCI procedure, Coronary Stent, Coronary Stent Initial 13:40:08 Procedure and supply charges have been captured, reviewed, submitted and are correct. 13:40:11 Procedure Complication : No complications 13:40:13 Vital chart was stopped 13:40:13 See physician's report for complete and final results. 13:40:15 Report given to Pre/Post Procedure Room. 13:40:18 Patient transfered to Pre/Post Procedure Room with Bed. 13:40:20 Procedure ended. 13:40:20 Full Disclosure recording stopped 13:40:26 End room use (Document Last) 13:42:33 End room use (Document Last) 13:42:54 End room use (Document Last) Intervention Summary Intervention Notes Time ActionType Lesion and Equipment Action# Pressure Duration Attributes Used 13:24:00 Inflate Mid RCA EMERGE OTW 1 8 00:15 balloon 3.0 x 15 balloon ([id number]) 13:24:36 Reinflate Mid RCA EMERGE OTW 2 8 00:15 balloon 3.0 x 15 balloon ([id number]) 13:25:04 Reinflate Mid RCA EMERGE OTW 3 8 00:15 balloon 3.0 x 15 balloon ([id number]) 13:31:42 Place stent Mid RCA THERESA OTW 3.5 4 14 00:15 x 34 stent ([id number]) Device Usage Item Name Manufacture Quantity Catalog Number Hospital Part Current M inimal Lot# / Charge Number Stock Stock Serial# Code ACIST Syringe Acist 1 52539 947048 931798 271749 2 0 (88199) Medical Systems Inc ACIST Hand Acist 1 61315 362779 308958 320457 5 Control Medical (87250) Systems Inc ACIST Acist 1 58944 769178 889082 446076 5 Manifold Medical (57198) Systems Inc Medline Cath Medline 1 [id number] 280106 41250 885045 5 Pack ([id number]) Bag Decanter Microtek 1 2001S 622235 61556 302449 5 (2001S) Medical Inc. EMERALD Guide Cardinal 1 502-455 637569 306221 966648 5 [facility] (502-455) SHEATH 6FR Cardinal 1 6242159 438266 3615813 055325 5 [facility] (6636955) INFLATOR [facility] 1 HC8734 024549 751198 149990 [address] [facility] BasixCompak (HP2631) WHISPER 300cm Hernandez 1 [id number] 362204 520221 956750 5 guide wire Vascular (8034244YD) GUIDE 6FR HS Medtronic 1 LA6HSI 206556 60324 309893 1 I catheter (LA6HSI) MBrace Wrist Advanced 1 140-0250-00 829620 76452 454253 5 Support Vascular (704043282) Dynamics EMERGE OTW [place] 1 [id number] 712023 318941 906935 5 [id number] 3.0 x 15 Scientific balloon ([id number]) THERESA OTW 3.5 Medtronic 1 [id number] 836327 8984217 993026 5 [id number] x 34 stent ([id number]) ZEPHYR Cardinal 1 832302 461610 0286278 466104 5 REGULAR TR Health BAND (387868) Signature Audit Allison Stage Time Signature Unsigned Intra-Procedure 06/05/2019 [place] Mi 1:42:33 PM RT(R) Intra-Procedure 06/05/2019 Lissette Sandhu 1:42:54 PM RN Intra-Procedure 06/05/2019 Damian Gudino 1:43:19 PM Niranjan MOYA [facility] [address] [place] [address]
[~2019-06-05 10:36] MED LIST changes: +ASPIRIN81 MG PO; +KLONOPIN1 MG PO; +PLAVIX75 MG PO; +TRESIBA FL100 UNIT/1 SC
[2019-06-05 11:14] VITALS: BP 141/80; Ht 165.1 cm; Wt 90.0 kg
[2019-06-05 11:43] LABS: BASOPHILS 0.3 % (0-2); HEMATOCRIT 33.6 % (36.0-48.0); HEMOGLOBIN 10.9 g/dL (12-16); IMMATURE GRANULOCYTES 0.1 % (0-5); LYMPHOCYTES 22.9 % (15-50); MCH 26.5 pg (26.0-34.0); MCHC 32.4 g/dL (31.0-37.0); MCV 81.8 fL (80.0-100.0); MONOCYTES 6.6 % (2-11); NEUTROPHILS 66.1 % (40-80); PLATELET COUNT 355 10x3/uL (130-400); RBC 4.11 10x6/uL (4.00-5.40); RDW 14.2 % (11.5-14.5); WBC 7.7 10x3/uL (4.8-10.8)
[2019-06-05 11:53] LABS: CARBON DIOXIDE 22.5 mmol/L (21.0-32.0); CREATININE - SERUM 1.5 mg/dL (0.6-1.3); POTASSIUM - SERUM 4.5 mmol/L (3.5-5.1)
--- NOTE | 2019-06-05 14:01 | NUR ---
PT RECEIVED VIA STRETCHER FROM [facility]AR[facility] STRINGER FOR RECOVERY. PT AWAKE AND ALERT, DENIES PAIN OR DISCOMFORT. MONITORS PLACED ON PT. HR NSR RATE 70, BP 121/72, RR 16, 02 SAT 98 ON ROOM AIR. ZYPHER BAND AND IMMOBILIZER TO R WRIST, DRESSING CDI NO BLEEDING OR HEMATOMA NOTED. ARM PINK AND WARM, CAP REFILL BRISK. CALL LIGHT IN REACH. PO FLUIDS GIVEN PER REQUEST
--- NOTE | 2019-06-05 14:23 | HP ---
PATIENT: NARCISA ROBLES MEDICAL RECORD: [id number] ACCOUNT: [id number] LOCATION:[place] : 59 ADMISSION DATE: 06/05/19 PCP: FORD GARCIA MD HISTORY AND PHYSICAL EXAMINATION HISTORY OF PRESENT ILLNESS: A 64-year-old lady with a history of coronary artery disease, status post recent admission for acute coronary intervention, found to have 2-vessel disease, underwent intervention now is being brought back to intervention of the right coronary. Multiple risk factors, continued to have some angina since discharged home, class III symptomatology. She is being admitted for revascularization. PAST MEDICAL HISTORY: Includes: 1. History of hypertension. 2. Hyperlipidemia. 3. Diabetes mellitus. 4. Coronary artery disease as described above. ALLERGIES: SULFA. MEDICATIONS: Include Lopid 600 b.i.d., Plavix 75 every day, lisinopril 40 every day, metoprolol 50 b.i.d., Trulicity 1.5 mcg q. week, and Tresiba 12 units q.a.m. PHYSICAL EXAMINATION: GENERAL: Pleasant female in no acute distress, appears stated age. HEENT: Normocephalic, atraumatic. NECK: No JVD or bruit. HEART: Regular. LUNGS: Mi clear. ABDOMEN: Soft, nontender. EXTREMITIES: Pulses 2+. No edema. DIAGNOSTIC DATA: ECG without acute change. IMPRESSION: Plan intervention to the right today. TRANSINT:[id number] Voice Confirmation ID: [id number] DOCUMENT ID: [id number] OBDULIO NOBLES MD at 1423 CC: [id number] DICTATION DATE: 06/05/19 1306 METAL POLISHER: 06/05/19 1328 [facility] [address] [place] [address]
[2019-06-05] MEDS ORDERED: BAYER CHEWABLE81 MG PO (14:24)
--- NOTE | 2019-06-05 14:29 | NUR ---
PT RESTING COMFORTABLY, WATCHING TV. DENIES PAIN OR NEEDS. HR 64, BP 131/71, O2 SAT 97 ON ROOM AIR, RR 21. Z BAND AND IMMOBILIZER IN PLACE, DRESSING CDI NO BLEEDING OR HEMATOMA NOTED. ARM PINK AND WARM, CAP REFILL BRISK. CALL LIGHT IN REACH, NO FAMILY PRESENT.
--- NOTE | 2019-06-05 15:15 | NUR ---
PT TOLERATED SANDWICH W/O N/V. PT DENIES PAIN OR DISCOMFORT. Z BAND IN PLACE, DRESSING REMAINS CDI NO BLEEDING OR HEMATOMA NOTED. ARM PINK AND WARM, CAP REFILL BRISK. VSS. CALL LIGHT IN REACH
--- NOTE | 2019-06-05 15:45 | NUR ---
PT RESTING W EYES CLOSED, VSS. Z BAND IN PLACE, DRESSING CDI NO BLEEDING OR HEMATOMA NOTED. CALL LIGHT IN REACH. VSS.
--- NOTE | 2019-06-05 16:15 | NUR ---
NO CHANGE IN PT CONDITION. SHE IS RESTING COMFORTABLY W/O COMPLAINTS. Z BAND REMAINS IN PLACE, NO BLEEDING OR SWELLING NOTED TO ARM. CAP REFILL REMAINS BRISK. HR 71, BP 113/62, O2 SAT 96 ON ROOM AIR, RR 21. CALL LIGHT IN REACH
--- NOTE | 2019-06-05 16:50 | NUR ---
5CC AIR REMOVED FROM ZBAND, NO BLEEDING OR HEMATOMA NOTED. ARM PINK AND WARM, CAP REFILL BRISK. PT DENIES PAIN OR NEEDS AT THIS TIME. CALL LIGHT REMAINS IN REACH
--- NOTE | 2019-06-05 17:16 | NUR ---
DISCHARGE INSTRUCTIONS REVIEWED W PT, SHE VERBALIZED UNDERSTANDING. IV REMOVED W CATH INTACT, MONITORS REMOVED. 5 MORE CC REMOVED FROM Z BAND, NO BLEEDING OR SWELLING NOTED. PT AMBULATED TO BR, VOIDING W/O DIFFICULITY.
--- NOTE | 2019-06-05 17:30 | NUR ---
1725 Z BAND REMOVED, NO BLEEDING OR SWELLING NOTED. 2X2 AND TEGADERM DRESSING APPLIED, IMMOBILIZER REPLACED. 1730 PT DISCHARGED VIA WC TO PRIVATE VEHICLE W RIDE WAITING. PT HAD ALL BELONGINGS AND DISCHARGE INSTRUCTIONS.
--- NOTE | 2019-06-07 13:56 | OP ---
PATIENT NAME: NARCISA ROBLES MEDICAL RECORD: [id number] :59 LOCATION:D.CAT ADMISSION DATE: SURGEON: OBDULIO NOBLES MD DATE OF OPERATION: 06/05/2019 PROCEDURE PERFORMED: PTCA with stent/intervention to the right coronary. DESCRIPTION OF PROCEDURE: After a radial sheath was placed in right radial artery, hockey stick guide catheter provided good guide catheter support, this was followed by 300 cm Whisper wire, which was placed across the tightly occluded elongated right coronary, with greatest stenosis of 90%. Predeployment used a 3.0 x 15 mm Cobb placed up and down this area. Finally, a 3.5 x 30 mm [place] drug-eluting stent up to 14 atmospheres for 45 seconds. Final angiography showed excellent resolution of a long diffuse 90% stenosis, no significant residual. [place] flow was 3 throughout the procedure. Heparin was used in the case. The patient was previously loaded on Plavix. Sheath closed with TR band. TRANSINT:[id number] Voice Confirmation ID: [id number] DOCUMENT ID: [id number] OBDULIO NOBLES MD at 1356 CC: [id number] DICTATION DATE: 06/05/19 1402 COFFEE SHOP AIDE: 06/05/19 2151 DEP CLI 06/05/19 [address] [place] [address]
== END 2019-06-05 17:30 | disposition home or self-care (01) ==
LOC: D.CATH 10:36 → D.CLR 11:00 → D.CATH 13:00
PROVIDERS: ATTEND Internal Medicine Interventional Cardiology
DX: I25.10 Atherosclerotic heart disease of native coronary artery without angina pectoris (principal)

== ENCOUNTER 2019-08-28 13:45 | Emergency (ER) | payer MEDICAID ==
[~2019-08-28] VITALS: Ht 165.1 cm; Wt 90.5 kg
[~2019-08-28 13:45] MED LIST changes: +BAYER CHEWABLE81 MG PO
[2019-08-28 13:53] VITALS: Ht 165.1 cm; Wt 90.5 kg
[2019-08-28] MEDS ORDERED: [UNRECOGNIZED DRUG - OTHER] (13:55)
[2019-08-28] MEDS ORDERED: LIPITOR80 MG PO (13:55)
[2019-08-28 14:55] LABS: BASOPHILS 0.9 % (0-2); CALC OSMOLALITY 283 mosm/kg (275-300); CALCIUM 9.3 mg/dL (8.5-10.1); CARBON DIOXIDE 23.3 mmol/L (21.0-32.0); CHLORIDE - SERUM 106 mmol/L (98-107); CREATININE - SERUM 1.1 mg/dL (0.6-1.3); EOSINOPHILS 5.6 % (0-7); GLUCOSE 85 mg/dL (74-106); HEMATOCRIT 37.9 % (36.0-48.0); HEMOGLOBIN 12.5 g/dL (12-16); IMMATURE GRANULOCYTES 0.1 % (0-5); MCH 26.4 pg (26.0-34.0); MONOCYTES 5.8 % (2-11); NEUTROPHILS 56.6 % (40-80); PLATELET COUNT 356 10x3/uL (130-400); POTASSIUM - SERUM 4.3 mmol/L (3.5-5.1); RBC 4.74 10x6/uL (4.00-5.40); RDW 13.8 % (11.5-14.5); SODIUM 140 mmol/L (136-145); UREA NITROGEN 30 mg/dL (7-18); WBC 8.6 10x3/uL (4.8-10.8); eGFR NON AFRICAN AMERICAN 53 mL/min (90-120)
[2019-08-28 15:09] LABS: ALBUMIN 3.8 g/dL (3.4-5.0); ALKALINE PHOSPHATASE 102 U/L (46-116); ALT (SGPT) 16 U/L (10-68); BILIRUBIN - TOTAL 0.29 mg/dL (0.2-1.3); CKMB 1.6 U/L (0.0-3.6); CREATINE KINASE 82 UL (21-215); MAGNESIUM - SERUM 1.8 mg/dL (1.8-2.4); PROTEIN - SERUM 7.8 g/dL (6.4-8.2)
[2019-08-28 15:10] LABS: TROPONIN-I < 0.017 ng/mL (0.000-0.060)
[2019-08-28 15:31] LABS: APTT 32.3 SECONDS (22.8-39.4); INR 1.01 (0.85-1.17); PROTIME 12.8 SECONDS (11.6-15.0)
[2019-08-28 15:33] LABS: D-DIMER-QUANTITATIVE 0.78 ug/mLFEU (0.20-0.54)
[2019-08-28 19:56] VITALS: BP 148/82
== END 2019-08-28 19:58 | disposition home or self-care (01) ==
LOC: D.ER 13:45
PROVIDERS: Family Medicine
DX: I25.10 Atherosclerotic heart disease of native coronary artery without angina pectoris (principal); R07.89 Other chest pain; I10 Essential (primary) hypertension; E11.9 Type 2 diabetes mellitus without complications; Z79.4 Long term (current) use of insulin; I25.2 Old myocardial infarction; Z95.818 Presence of other cardiac implants and grafts

== ENCOUNTER 2019-10-01 06:29 | Outpatient (CLI) | payer MEDICAID ==
[~2019-10-01] VITALS: Ht 165.1 cm; Wt 90.0 kg
[~2019-10-01 06:29] MED LIST changes: +LIPITOR80 MG PO; +[UNRECOGNIZED DRUG - OTHER]
[2019-10-01] MEDS ORDERED: ZETIA10 MG PO (07:36)
[2019-10-01 07:43] VITALS: Ht 165.1 cm; Wt 90.0 kg
[2019-10-01 07:56] LABS: BASOPHILS 0.5 % (0-2); EOSINOPHILS 7.1 % (0-7); HEMATOCRIT 39.1 % (36.0-48.0); HEMOGLOBIN 12.8 g/dL (12-16); IMMATURE GRANULOCYTES 0.5 % (0-5); LYMPHOCYTES 25.8 % (15-50); MCH 26.2 pg (26.0-34.0); MCHC 32.7 g/dL (31.0-37.0); MEAN PLATELET VOLUME 8.9 fL (7.4-10.4); MONOCYTES 5.8 % (2-11); NEUTROPHILS 60.3 % (40-80); PLATELET COUNT 353 10x3/uL (130-400); RBC 4.89 10x6/uL (4.00-5.40); RDW 13.6 % (11.5-14.5); WBC 8.5 10x3/uL (4.8-10.8)
[2019-10-01 08:16] LABS: ANION GAP 14.5 mmol/L (8-16); CARBON DIOXIDE 25.4 mmol/L (21.0-32.0); CREATININE - SERUM 1.2 mg/dL (0.6-1.3); POTASSIUM - SERUM 4.9 mmol/L (3.5-5.1)
[2019-10-01 08:27] LABS: APTT 31.6 SECONDS (22.8-39.4); INR 0.95 (0.85-1.17); PROTIME 12.6 SECONDS (11.6-15.0)
--- NOTE | 2019-10-01 10:07 | NUR ---
0944 SEE POST PROCEDURE CHECKLIST FOR VITAL SIGN TRENDS. 1005 FRIEND AT SIDE.
--- NOTE | 2019-10-01 10:12 | NUR ---
1005 PT WITH HICCUPS. DRESSING CDI HAS AIR POCKET, NO HEMATOMA, HOB ELEVATED, FRIEND AT SIDE.
--- NOTE | 2019-10-01 10:43 | NUR ---
1035 DRESSING CDI, UNCHANGED. PT. TALKATIVE. DENIES PROBLEMS. HICCUPS ARE GONE AT PRESENT TIME.
--- NOTE | 2019-10-01 12:56 | NUR ---
PT RESTING QUIETLY IN BED AFTER VOIDING. DENIES NEEDS AT THIS TIME. STATES SLIGHT DISCOMFORT AT INCISION SITE. WILL CONTINUE TO MONITOR.
--- NOTE | 2019-10-01 13:30 | NUR ---
1325 PT ARRANGED FOR RIDE HOME.
--- NOTE | 2019-10-01 14:06 | NUR ---
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
== END 2019-10-01 14:00 | disposition home or self-care (01) ==
LOC: D.CT 06:29
PROVIDERS: Specialist; ATTEND Surgery
DX: D36.10 Benign neoplasm of peripheral nerves and autonomic nervous system, unspecified (principal)

== ENCOUNTER → 2019-11-06 12:39 | Outpatient (CLI) | payer MEDICAID ==
[2019-10-01 07:43] VITALS: BMI 33.0
[~2019-11-06 12:39] MED LIST changes: +ZETIA10 MG PO
[2019-11-06 13:57] LABS: PLT FUNCT.(P2Y12) PLAVIX 61 PRU (194-418)
== END | disposition home or self-care (01) ==
LOC: D.LAB 12:39
PROVIDERS: ATTEND Thoracic Surgery (Cardiothoracic Vascular Surgery)
DX: Z01.812 Encounter for preprocedural laboratory examination (principal)

== ENCOUNTER 2019-11-20 08:00 | Outpatient (CLI) | payer MEDICAID ==
[2019-10-01 07:43] VITALS: BMI 33.0
[2019-11-20] MEDS ORDERED: [UNRECOGNIZED DRUG - OTHER] SQ (09:01)
[2019-11-20 10:22] LABS: HEMATOCRIT 40.5 % (36.0-48.0); MCH 26.1 pg (26.0-34.0); MCHC 32.1 g/dL (31.0-37.0); MCV 81.3 fL (80.0-100.0); MEAN PLATELET VOLUME 8.7 fL (7.4-10.4); RBC 4.98 10x6/uL (4.00-5.40); RDW 13.8 % (11.5-14.5)
[2019-11-20 10:27] LABS: APTT 31.3 SECONDS (22.8-39.4); INR 0.92 (0.85-1.17); PROTIME 12.3 SECONDS (11.6-15.0)
[2019-11-20 10:32] LABS: ALBUMIN 3.8 g/dL (3.4-5.0); ANION GAP 10.9 mmol/L (8-16); BILIRUBIN - TOTAL 0.29 mg/dL (0.2-1.3); CARBON DIOXIDE 28.5 mmol/L (21.0-32.0); CREATININE - SERUM 1.3 mg/dL (0.6-1.3); POTASSIUM - SERUM 4.4 mmol/L (3.5-5.1); PROTEIN - SERUM 7.9 g/dL (6.4-8.2)
== END 2019-11-20 08:01 | disposition home or self-care (01) ==
LOC: D.PAN 08:00 → D.M2 11-22 07:30 → EDSTATUS 11-22 07:30
PROVIDERS: ATTEND Thoracic Surgery (Cardiothoracic Vascular Surgery)
DX: R22.2 Localized swelling, mass and lump, trunk (principal)

== ENCOUNTER 2020-04-29 08:50 | Inpatient (IN) | payer MEDICAID ==
[~2020-04-29] VITALS: Ht 165.1 cm; Wt 111.1 kg
--- NOTE | ~2020-04-29 | OP ---
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 SURGEON: Pat Sandhu MD DESCRIPTION AND TECHNIQUE: After induction of general anesthesia, positioning the patient on the left lateral decubitus position, Dr. Gonzalez performed a thoracotomy and exposed the 5th and 6th ribs as well as the rib heads. I inspected the field that there was obvious tumor emanating from the 5-6 interspace. The subcostal nerve was followed to the nerve foramen and the pedicle at the 5-6 interspace. There was no tumor within the foramen. The nerve was then followed distally into a mass between the 5th and 6th ribs. The proximal portion of the tumor was resected from the rib with sharp dissection and bipolar cautery. Dr. Gonzalez then performed the remainder of the tumor resection. The neural foramen was clear of any tumor at the conclusion of my portion of the procedure. Dr. Gonzalez finish the tumor resection and then also closed the wound. The blood loss for my portion of the procedure was minimal. All counts were reported as correct. TRANSINT:[id number] Voice Confirmation ID: [id number] DOCUMENT ID: [id number] PAT SANDHU MD CC: [id number] DICTATION DATE: 05/02/20 0941 FIBERGLASS GRINDER: 05/02/20 1903 ADM IN [facility] [address] [place] [address]
[~2020-04-29 08:50] MED LIST changes: +[UNRECOGNIZED DRUG - OTHER] SQ
[2020-04-29] MEDS ORDERED: ULTRAM50 MG PO (09:13)
[2020-04-29 10:46] LABS: HEMATOCRIT 40.6 % (36.0-48.0); HEMOGLOBIN 12.9 g/dL (12-16); MCH 25.8 pg (26.0-34.0); MCHC 31.8 g/dL (31.0-37.0); MCV 81.2 fL (80.0-100.0); MEAN PLATELET VOLUME 8.9 fL (7.4-10.4); RDW 14.6 % (11.5-14.5); WBC 6.7 10x3/uL (4.8-10.8)
[2020-04-29 11:07] LABS: ALBUMIN 3.9 g/dL (3.4-5.0); ANION GAP 10.1 mmol/L (8-16); BILIRUBIN - TOTAL 0.32 mg/dL (0.2-1.3); CALCIUM 8.7 mg/dL (8.5-10.1); CARBON DIOXIDE 26.5 mmol/L (21.0-32.0); CREATININE - SERUM 1.4 mg/dL (0.6-1.3); POTASSIUM - SERUM 4.6 mmol/L (3.5-5.1); PROTEIN - SERUM 7.9 g/dL (6.4-8.2)
[2020-04-29 11:13] LABS: APTT 36.1 SECONDS (22.8-39.4)
[2020-04-29 11:16] LABS: BILIRUBIN NEGATIVE (NEGATIVE); KETONE NEGATIVE (NEGATIVE); NITRITE NEGATIVE (NEGATIVE); UROBILINOGEN NORMAL (NORMAL)
[2020-04-29 11:17] LABS: INR 0.96 (0.85-1.17); PROTIME 12.8 SECONDS (11.6-15.0)
[2020-04-29 11:17] LABS: BACTERIA FEW /hpf (NEGATIVE); EPITHELIAL CELLS 0-5 /hpf (0-5); RED CELLS - URINE RARE /hpf (0-5)
[2020-05-02] VITALS (25 sets, daily range): BP systolic 90–171; BP diastolic 50–90; BMI 35.8
--- NOTE | 2020-05-02 10:07 | NUR ---
REC'D FROM OR VIA BED. CONNECTED TO MONITOR AND VS OBTAINED. SEE FLOWSHEET FOR ASSESSMENT.
--- NOTE | 2020-05-02 19:00 | NUR ---
REPORT RECEIVED. INITIAL ASSESSMENT COMPLETE. PT ALERT AND ORIENTED X 4. RESP EVEN NONLABORED O2 SAT 98-100% ROOM AIR. CM READING SR WITHOUT ECTOPY ALARMS ON AND AUDIBLE. PT STATES AUTO MACHINIST MORPHINE AT CURRENT DOSE IS CONTROLLING HER PAIN ENCOURAGED TO CALL NURSE IF CHANGES. RIGHT CTX2 TO WATERSEAL NO AIR LEAK. BED LOW POSITION SIDE RAILS UP *3 FOR BED MOBITLITY AND SAFETY CL IN REACH. WILL CONTINUE TO MONITOR
--- NOTE | 2020-05-02 19:30 | NUR ---
DR GRIFFIHT HERE FOR CONSULT. PT KNOWN TO HIM FOR OUTPATIENT WOUND CARE. DEBRIDEMENT AND DRESSING CHANGED WITH BETADINE 4X4 AND TAPE PER DR GRIFFITH
--- NOTE | 2020-05-02 21:09 | MORECARE ---
CASE MANAGEMENT DISCHARGE SUMMARY PATIENT: NARCISA ROBLES UNIT: [id number] ADM DATE: 05/02/20 AGE: 65 : 59 SEX: F [facility]OM[facility]BED: [facility] AUTHOR: KENYATTA,DOC PHYSICIAN: REFERRING PHYSICIAN: ANAHY MEI MD DATE OF SERVICE: 05/02/20 Discharge Plan Patient Name: NARCISA ROBLES Facility: [facility]:[place] : 1955 Planned Disposition: Home Anticipated Discharge Date: Discharge Date: Expected LOS: Initial Reviewer: [email or web address] Initial Review Date: 05/02/2020 Generated: 05/02/20 10:08 pm Comments DCP- Discharge Planning Updated by [email or web address]: Gloria Arroyo on 05/02/20 8:[address] Patient Name: NARCISA ROBLES Admission Status: Elective Accout number: [id number] Admission Date: 05-02-2020 : 1955 Admission Diagnosis: Attending: ANAHY MEI Current LOS: 1 Anticipated DC Date: Planned Disposition: Home Primary Insurance: [place] PRIVATE OPTIONS G[place] Discharge Planning Comments: CM met with patient to complete initial dc planning assessment. CM educated patient on the CM role and verbal consent given by patient to complete assessment. Patient lives at home ALONE. Patient is independent. At discharge patient plans to return home and feels this is a safe discharge. CM discussed availability of home health, rehab services, and medical equipment. Patient will have family to transport home. Patient denied known discharge needs at this time. CM will continue to follow and will assist as needed with dc plans/needs. Rubber Goods Finisher: Gloria Arroyo DCPIA - Discharge Planning Initial Assessment Updated by [email or web address]: Gloria Arroyo on 05/02/20 9:05 pm * Is the patient Alert and Oriented? Yes * How many steps to enter\exit or inside your home? * PCP [facility] * [facility] * Preadmission Environment Home Alone * ADLs Independent * Equipment None * List name and contact numbers for known caregivers / representatives who currently or will assist patient after discharge: RACHEL ARIAS - [phone] * Verbal permission to speak to the caregivers and representatives has been obtained from the patient. Yes * Community resources currently utilized None * Additional services required to return to the preadmission environment? No * Can the patient safely return to the preadmission environment? Yes * Has this patient been hospitalized within the prior 30 days at any hospital? No Patient Name: NARCISA ROBLES Page 28068 at 210 All edits/amendments must be made on the electronic document DICTATION DATE: 05/02/202108 CAMERA MAKER: GINNY 05/02/202108 RPT#: [id number] DC DATE: STATUS: ADM IN [facility] [address] [place] [address] END OF REPORT
[2020-05-03] VITALS (24 sets, daily range): BP systolic 87–138; BP diastolic 35–69; Ht 165.1 cm; Wt 111.1 kg
--- NOTE | 2020-05-03 04:00 | NUR ---
ANSWERED PTS CALL LIGHT SHE C/O NAUSEA AND VOMITED MINIMAL LESS THAN 20 CC MEDICATED WITH PRN ZOFRAN
[2020-05-03 06:21] LABS: HEMATOCRIT 33.2 % (36.0-48.0); HEMOGLOBIN 10.5 g/dL (12-16); MCH 25.6 pg (26.0-34.0); MCHC 31.6 g/dL (31.0-37.0); MEAN PLATELET VOLUME 8.6 fL (7.4-10.4); RBC 4.1 10x6/uL (4.00-5.40); RDW 14.6 % (11.5-14.5); WBC 11.1 10x3/uL (4.8-10.8)
[2020-05-03 06:50] LABS: ALBUMIN 2.9 g/dL (3.4-5.0); ANION GAP 15.9 mmol/L (8-16); BILIRUBIN - TOTAL 0.43 mg/dL (0.2-1.3); CALCIUM 7.9 mg/dL (8.5-10.1); CREATININE - SERUM 1.8 mg/dL (0.6-1.3); POTASSIUM - SERUM 3.9 mmol/L (3.5-5.1); PROTEIN - SERUM 6.3 g/dL (6.4-8.2)
--- NOTE | 2020-05-03 09:50 | OP ---
PATIENT NAME: NARCISA ROBLES MEDICAL RECORD: [id number] :59 LOCATION:JUAN D.CV04 ADMISSION DATE:05/02/20 SURGEON: BOLA MEI MD DATE OF OPERATION: 05/02/2020 CO-SURGEONS: Bola Mei MD and Pat Sandhu MD PROCEDURE PERFORMED: Right thoracotomy, resection of chest wall tumor, and nerve root inspection. PREOPERATIVE DIAGNOSIS: Neurogenic tumor with pain, right 5th and 6th rib posteriorly. POSTOPERATIVE DIAGNOSIS: Spindle cell tumor. ANESTHESIA: General endotracheal anesthesia, double lumen BLOOD LOSS: Minimal. SPECIMENS: Resected tissue and a second resected fibrous tissue posterior to the tumor between the 5th and 6th ribs. COMPLICATIONS: None. CONDITION: Stable. DISPOSITION: ICU. The tumor appeared to be between the ribs and after careful dissection along with neurosurgery the nerve root was followed and it was not involved in this tumor. The tumor was easily removed from the rib, which it was adjacent to, but not invading. OPERATIVE INDICATION: Painful neurogenic posterior chest tumor adjacent to 5th and 6th rib. PROCEDURE IN DETAIL: The patient was brought to the operating suite. Bronchoscopy performed. Double lumen endotracheal tube placed. The patient was turned in left lateral decubitus position with appropriate padding. Right posterolateral thoracotomy incision was made, taken down through subcutaneous tissue and muscle. A small section of the sixth rib posteriorly was removed. The pleural cavity was entered. The tumor was identified and inspected. The neurovascular bundle of the 6th rib was exposed below the parietal pleura and followed down to the mass. A wide parietal pleura opening over the tumor was made up above the fifth rib and down to below the 6th rib. The tumor was not invading the 5th rib nor that the neurovascular bundle and it was free as well as from the 6th rib, neurosurgery followed the nerve root down to the spine and it was not involved. The tumor was resected and sent for frozen. Some fibrinous tissue posterior to the resection was then resected as a second separate specimen once it was clear that the nerve root was not involved. Hemostasis was ensured. Surgicel was used. FloSeal was placed. Drains were placed apically and inferiorly. Patient was extubated and taken to the ICU in stable condition. TRANSINT:[id number] Voice Confirmation ID: [id number] DOCUMENT ID: [id number] OPERATIVE REPORT [id number] NARCISA ROBLES BOLA MEI MD at 0950 CC: PAT SANDHU and FORD GARCIA MD [id number] DICTATION DATE: 05/02/20 1244 ASSISTANT TECHNICIAN: 05/02/20 2216 ADM IN [facility] [address] [place] [id number]
--- NOTE | 2020-05-03 10:30 | NUR ---
L RADIAL ARTERIAL LINE DC'D. MANUAL PRESSURE HELD X 3 MIN AND SITE DRESSED WITH 2X2 AND SILK TAPE.
[2020-05-04] VITALS (21 sets, daily range): BP systolic 92–141; BP diastolic 39–89
[2020-05-04 05:35] LABS: HEMATOCRIT 30.1 % (36.0-48.0); HEMOGLOBIN 9.7 g/dL (12-16); MCH 25.9 pg (26.0-34.0); MCHC 32.2 g/dL (31.0-37.0); MCV 80.5 fL (80.0-100.0); MEAN PLATELET VOLUME 8.5 fL (7.4-10.4); RBC 3.74 10x6/uL (4.00-5.40); RDW 14.7 % (11.5-14.5); WBC 8.8 10x3/uL (4.8-10.8)
[2020-05-04 06:05] LABS: ALBUMIN 2.4 g/dL (3.4-5.0); ANION GAP 10.2 mmol/L (8-16); BILIRUBIN - TOTAL 0.33 mg/dL (0.2-1.3); CALCIUM 7.3 mg/dL (8.5-10.1); CARBON DIOXIDE 26.1 mmol/L (21.0-32.0); CREATININE - SERUM 1.6 mg/dL (0.6-1.3); POTASSIUM - SERUM 4.3 mmol/L (3.5-5.1); PROTEIN - SERUM 5.8 g/dL (6.4-8.2)
--- NOTE | 2020-05-04 15:42 | NUR ---
1100: DR. MEI HERE. R LATERAL CHEST DC'D BY DR. MEI. 1200: [facility] DE[facility] MORPHINE DC'D. R SUBCLAVIAN SALINE LOCKED. 1330: EBONI MEJIA'Sanjiv.
--- NOTE | 2020-05-04 15:59 | NUR ---
1520: C/O FEELING "FOGGY HEADED" AND REQUESTS FENTANYL PATCH BE REMOVED. PATCH REMOVED AND DISCARDED ACCORDING TO POLICY.
[2020-05-05] VITALS (11 sets, daily range): BP systolic 97–141; BP diastolic 43–68
[2020-05-05 05:14] LABS: HEMATOCRIT 30.5 % (36.0-48.0); HEMOGLOBIN 9.8 g/dL (12-16); MCH 25.7 pg (26.0-34.0); MCHC 32.1 g/dL (31.0-37.0); MCV 80.1 fL (80.0-100.0); MEAN PLATELET VOLUME 8.6 fL (7.4-10.4); RBC 3.81 10x6/uL (4.00-5.40); RDW 14.5 % (11.5-14.5); WBC 7.7 10x3/uL (4.8-10.8)
[2020-05-05 05:33] LABS: ALBUMIN 2.5 g/dL (3.4-5.0); BILIRUBIN - TOTAL 0.41 mg/dL (0.2-1.3); CALCIUM 7.9 mg/dL (8.5-10.1); CARBON DIOXIDE 27.4 mmol/L (21.0-32.0); CREATININE - SERUM 1.2 mg/dL (0.6-1.3); POTASSIUM - SERUM 4.4 mmol/L (3.5-5.1); PROTEIN - SERUM 6.1 g/dL (6.4-8.2)
--- NOTE | 2020-05-05 07:50 | NUR ---
DR HAMIDA TANG. PLAN FOR DISCHARGE TODAY. OK TO DC CVL.
--- NOTE | 2020-05-05 07:51 | NUR ---
BREAKFAST TRAY PROVIDED FOR THE PT.
--- NOTE | 2020-05-05 08:43 | NUR ---
PT ASSISTED TO THE BATHROOM. SLOW AND STEADY GAIT NOTED. PT STATED SHE HAD A SMALL BM AND VOIDED WITH NO ISSUES.
[2020-05-05] MEDS ORDERED: HYDROCODON-ACE1 EAC7 PO (09:48)
--- NOTE | 2020-05-05 10:01 | NUR ---
Nutrition Follow-up: POD 3 resection of chest wall tumor. Eating well. Diet: Diabetic PO intake: 50-100% Wt: 244.5# (05/05) Last BM: 05/05 Labs noted: Na 131, Glu 167, Ca 7.9, Alb 2.5 Meds noted: Lantus, Humulin, Protonix -Encourage PO intake and honor food preferences within diet restrictions. -Monitor wt. -RD following.
--- NOTE | 2020-05-05 10:31 | NUR ---
PT AMBULATED ABOUT 500 FEET WITH A NORMAL AND STEADY GAIT. VSS. WILL COTN POC.
--- NOTE | 2020-05-05 12:17 | NUR ---
CVL DC'D WITH THE CATHETER TIP INTACT.
[2020-05-05] MEDS ORDERED: LOPRESSOR25 MG PO (12:47)
--- NOTE | 2020-05-05 13:33 | NUR ---
LEFT VIA PRIVATE AUTO.
--- NOTE | 2020-05-05 16:59 | MORECARE ---
CASE MANAGEMENT DISCHARGE SUMMARY PATIENT: NARCISA ROBLES UNIT: [id number] ADM DATE: 05/02/20 AGE: 65 : 59 SEX: F ROOM/BED: D[facility] AUTHOR: KENYATTA,DOC PHYSICIAN: REFERRING PHYSICIAN: ANAHY MEI MD DATE OF SERVICE: 05/05/20 Discharge Plan Patient Name: NARCISA ROBLES Facility: [facility]:[place] : 1955 Planned Disposition: Home Anticipated Discharge Date: Discharge Date: 05/05/2020 Expected LOS: Initial Reviewer: [email or web address] Initial Review Date: 05/02/2020 Generated: 05/05/20 5:58 pm Comments DCP- Discharge Planning Updated by [email or web address]: Gloria Arroyo on 05/02/20 8:[address] Patient Name: NARCISA ROBLES Admission Status: Elective Accout number: [id number] Admission Date: 05-02-2020 : 1955 Admission Diagnosis: Attending: ANAHY MEI Current LOS: 1 Anticipated DC Date: Planned Disposition: Home [place] Insurance: [place] PRIVATE OPTIONS G[place] Discharge Planning Comments: CM met with patient to complete initial dc planning assessment. CM educated patient on the CM role and verbal consent given by patient to complete assessment. Patient lives at home ALONE. Patient is independent. At discharge patient plans to return home and feels this is a safe discharge. CM discussed availability of home health, rehab services, and medical equipment. Patient will have family to transport home. Patient denied known discharge needs at this time. CM will continue to follow and will assist as needed with dc plans/needs. Music Professionals: Gloria Arroyo DCPIA - Discharge Planning Initial Assessment Updated by [email or web address]: Gloria Arroyo on 05/02/20 9:05 pm * Is the patient Alert and Oriented? Yes * How many steps to enter\exit or inside your home? * PCP [facility] * [facility] * Preadmission Environment Home Alone * ADLs Independent * Equipment None * List name and contact numbers for known caregivers / representatives who currently or will assist patient after discharge: RACHEL ARIAS - [phone] * Verbal permission to speak to the caregivers and representatives has been obtained from the patient. Yes * Community resources currently utilized None * Additional services required to return to the preadmission environment? No * Can the patient safely return to the preadmission environment? Yes * Has this patient been hospitalized within the prior 30 days at any hospital? No Last DP export: 05/02/20 8:09 p Patient Name: NARCISA ROBLES Page 75543 at 1659 All edits/amendments must be made on the electronic document DICTATION DATE: 05/05/201657 BULK STATION OPERATOR: GINNY 05/05/201657 RPT#: [id number] DC DATE:05/05/20 STATUS: DIS IN [facility] [address] [place] [address] END OF REPORT
== END 2020-05-05 13:40 | disposition home or self-care (01) | DRG 827 ==
LOC: D.CVICU 05-02 05:00 → D.SDCHOLD 05-02 05:00 → D.CVICU 05-02 10:46
PROVIDERS: ADMIT Thoracic Surgery (Cardiothoracic Vascular Surgery); ATTEND Thoracic Surgery (Cardiothoracic Vascular Surgery)
PROC: 0JBR0ZZ Excision of Left Foot Subcutaneous Tissue and Fascia, Open Approach (ICD-10-PCS; principal; 2020-05-02 07:30)
PROC: 0WB80ZZ Excision of Chest Wall, Open Approach (ICD-10-PCS; 2020-05-02 07:30)
DX: D49.89 Neoplasm of unspecified behavior of other specified sites (principal); L97.422 Non-pressure chronic ulcer of left heel and midfoot with fat layer exposed; R22.2 Localized swelling, mass and lump, trunk; E11.621 Type 2 diabetes mellitus with foot ulcer; I25.10 Atherosclerotic heart disease of native coronary artery without angina pectoris; I10 Essential (primary) hypertension; E78.5 Hyperlipidemia, unspecified; R07.9 Chest pain, unspecified

== ENCOUNTER 2020-05-01 10:16 | Outpatient (CLI) | payer MEDICAID ==
[~2020-05-01] VITALS: Ht 165.1 cm; Wt 97.5 kg
[2020-05-01 10:53] VITALS: Ht 165.1 cm; Wt 97.5 kg
[2020-05-01 11:16] LABS: BILIRUBIN NEGATIVE (NEGATIVE); KETONE NEGATIVE (NEGATIVE); NITRITE NEGATIVE (NEGATIVE); UROBILINOGEN NORMAL (NORMAL)
== END 2020-05-01 11:04 ==
LOC: D.OPS 10:16
PROVIDERS: ATTEND Thoracic Surgery (Cardiothoracic Vascular Surgery)
DX: N39.0 Urinary tract infection, site not specified (principal); R07.89 Other chest pain

== ENCOUNTER → 2020-05-07 12:40 | Outpatient (CLI) | payer MEDICAID ==
[2020-05-03 12:02] VITALS: BMI 39.9
[~2020-05-07 12:40] MED LIST changes: +HYDROCODON-ACE1 EAC7 PO; +LOPRESSOR25 MG PO
== END | disposition home or self-care (01) ==
LOC: D.RAD 12:40
PROVIDERS: ATTEND Thoracic Surgery (Cardiothoracic Vascular Surgery)
DX: R22.2 Localized swelling, mass and lump, trunk (principal)

== ENCOUNTER 2020-05-16 07:33 | Inpatient (IN) | payer MEDICAID ==
[~2020-05-16] VITALS: Ht 165.1 cm; Wt 105.7 kg
[2020-05-16 09:03] LABS: HEMATOCRIT 40.4 % (36.0-48.0); HEMOGLOBIN 12.7 g/dL (12-16); MCH 25.2 pg (26.0-34.0); MCHC 31.4 g/dL (31.0-37.0); MCV 80.2 fL (80.0-100.0); MEAN PLATELET VOLUME 8.5 fL (7.4-10.4); RBC 5.04 10x6/uL (4.00-5.40); RDW 14.2 % (11.5-14.5); WBC 8.6 10x3/uL (4.8-10.8)
[2020-05-16 09:09] LABS: APTT 30.7 SECONDS (22.8-39.4); INR 0.93 (0.85-1.17); PROTIME 12.4 SECONDS (11.6-15.0)
[2020-05-16 09:15] LABS: ALBUMIN 3.6 g/dL (3.4-5.0); ANION GAP 13.4 mmol/L (8-16); BILIRUBIN - TOTAL 0.23 mg/dL (0.2-1.3); CALCIUM 9.5 mg/dL (8.5-10.1); CARBON DIOXIDE 28.6 mmol/L (21.0-32.0); CREATININE - SERUM 1.3 mg/dL (0.6-1.3); PROTEIN - SERUM 8.2 g/dL (6.4-8.2)
[2020-05-16 09:28] LABS: BILIRUBIN NEGATIVE (NEGATIVE); KETONE SMALL mg/dL (NEGATIVE); NITRITE NEGATIVE (NEGATIVE); UROBILINOGEN NORMAL mg/dL (< 2)
[2020-05-20] VITALS (36 sets, daily range): BP systolic 101–172; BP diastolic 55–101; BMI 37.5
--- NOTE | 2020-05-20 10:00 | NUR ---
Arrived to room around 0946 via bed. Connected to icu monitoring. CT x 2 to right side side. Connected to 20cm suction, no air leak noted. Epidural in place. Incision to right upper back c/d/i. Dejesus catheter in place. Left radial sammi. ASHWIN'S and SCD's on bilateral LE. Call light in reach. Will continue to monitor.
--- NOTE | 2020-05-20 13:54 | NUR ---
Left radial sammi dc'd per order. Pt resting comfortably.
--- NOTE | 2020-05-20 17:41 | NUR ---
No nause reported. Ate jello. resting comfortably. Will continue to monitor.
--- NOTE | 2020-05-20 18:11 | NUR ---
HR 110, BP 132/73. Dr. Gonzalez notified. Restart lopressor 12.5MG PO BID.
[2020-05-21] VITALS (20 sets, daily range): BP systolic 101–147; BP diastolic 52–82; Ht 165.1 cm; Wt 105.7 kg
[2020-05-21 05:59] LABS: HEMATOCRIT 34.6 % (36.0-48.0); HEMOGLOBIN 11.1 g/dL (12-16); MCH 25.6 pg (26.0-34.0); MCHC 32.1 g/dL (31.0-37.0); MCV 79.9 fL (80.0-100.0); MEAN PLATELET VOLUME 8.7 fL (7.4-10.4); RBC 4.33 10x6/uL (4.00-5.40); RDW 14.3 % (11.5-14.5); WBC 11.6 10x3/uL (4.8-10.8)
[2020-05-21 06:22] LABS: ALBUMIN 2.5 g/dL (3.4-5.0); ANION GAP 10.2 mmol/L (8-16); BILIRUBIN - TOTAL 0.53 mg/dL (0.2-1.3); CALCIUM 7.6 mg/dL (8.5-10.1); CARBON DIOXIDE 26.7 mmol/L (21.0-32.0); CREATININE - SERUM 1.3 mg/dL (0.6-1.3); POTASSIUM - SERUM 3.9 mmol/L (3.5-5.1); PROTEIN - SERUM 6.1 g/dL (6.4-8.2)
--- NOTE | 2020-05-21 07:20 | NUR ---
Shift report received. Alert and oriented. On room air. CT X 2 to right side, dressing c/d/i, no air leak noted, to 20cm suction. RU back dressing c/d/i. Fentanyl epidural infusing at 8ml/hr with 4ml bolus q 15min if needed. Right subclavian CVL in place with plasmolyte at 30ml/hr and zinacef at 12.8ml/hr. Dejesus catheter in place with yellow urine noted. ASHWIN'S and SCD's on bilateral LE. Safety measures in place. Call light in reach. Will continue to monitor.
--- NOTE | 2020-05-21 08:30 | NUR ---
AM meds have been given. Pt resting comfortably. Ice water provided. Ate 100% of breakfast. Denies other needs at this time. Will continue to monitor.
--- NOTE | 2020-05-21 11:30 | NUR ---
Pulled up and repositioned for comfort. Epidural remains in place. Pt denies having pain at this time. CT insertion site c/d/i. VSS. Fever 101.5 noted. No Will continue to monitor.
--- NOTE | 2020-05-21 19:00 | NUR ---
REPORT RECEIVED FROM OFF GOING NURSE. RECEIVED PT LAYING IN BED WATCHING TV AT THIS TIME. PT'S EPIDURAL IS INTACT AND INFUSING. PT REPORTS NO PAIN AT THIS TIME. CVL DRESSING CHANGE COMPLETED. SHIFT ASSESSMENT COMPLETED, SEE FLOWSHEET FOT DETAILS.
[2020-05-22] VITALS (21 sets, daily range): BP systolic 104–147; BP diastolic 60–81
[2020-05-22 06:08] LABS: HEMOGLOBIN 10.4 g/dL (12-16); MCH 25.2 pg (26.0-34.0); MCHC 31.5 g/dL (31.0-37.0); MCV 80.1 fL (80.0-100.0); MEAN PLATELET VOLUME 8.7 fL (7.4-10.4); RBC 4.12 10x6/uL (4.00-5.40); RDW 14.5 % (11.5-14.5); WBC 12.2 10x3/uL (4.8-10.8)
[2020-05-22 06:40] LABS: ALBUMIN 2.4 g/dL (3.4-5.0); ANION GAP 11.1 mmol/L (8-16); BILIRUBIN - TOTAL 0.28 mg/dL (0.2-1.3); CARBON DIOXIDE 26.9 mmol/L (21.0-32.0); CREATININE - SERUM 1.2 mg/dL (0.6-1.3); PROTEIN - SERUM 6.4 g/dL (6.4-8.2)
--- NOTE | 2020-05-22 07:30 | NUR ---
Patient resting comfortably in bed. Denies any pain at this time. CT X 2 to right side on 20cm suction. Dressing c/d/i. Right upper back incision with dressing c/d/i. Epidural remains in place at 8ml/hr with 4ml bolus q15min available. Pt states she has not needed to use bolus as much as she did yesterday. R-sub CVL in place with plasmolyte at 30ml/hr. Dejesus catheter in place with yellow urine noted. Safety measures in place. Will continue to monitor.
--- NOTE | 2020-05-22 09:20 | NUR ---
Ate 100% of breakfast. Am meds given. VSS. Denies further needs at this time.
--- NOTE | 2020-05-22 15:35 | NUR ---
Plasmolyte discontinued per orders. CVP monitoring discontinued per order. Right subclavian CVL saline locked. No further needs at this time. Will continue to monitor.
--- NOTE | 2020-05-22 19:00 | NUR ---
Report received from off going nurse. Received pt sitting up in bed watching tv. Pt reports that she does not want her pain button handy, that she wants it put up but where she can ask for it later if she needs it. Shift assessment completed, see flowsheet for details. Further needs denied at this time.
[2020-05-23] VITALS (22 sets, daily range): BP systolic 108–175; BP diastolic 56–96
[2020-05-23 05:19] LABS: HEMATOCRIT 32.1 % (36.0-48.0); HEMOGLOBIN 10.1 g/dL (12-16); MCH 25.1 pg (26.0-34.0); MCHC 31.5 g/dL (31.0-37.0); MCV 79.9 fL (80.0-100.0); MEAN PLATELET VOLUME 8.6 fL (7.4-10.4); RBC 4.02 10x6/uL (4.00-5.40); RDW 14.3 % (11.5-14.5); WBC 9.7 10x3/uL (4.8-10.8)
[2020-05-23 05:43] LABS: ALBUMIN 2.1 g/dL (3.4-5.0); ANION GAP 9.6 mmol/L (8-16); BILIRUBIN - TOTAL 0.17 mg/dL (0.2-1.3); CALCIUM 8.1 mg/dL (8.5-10.1); CARBON DIOXIDE 27.3 mmol/L (21.0-32.0); POTASSIUM - SERUM 3.9 mmol/L (3.5-5.1); PROTEIN - SERUM 6.2 g/dL (6.4-8.2)
--- NOTE | 2020-05-23 10:32 | OP ---
PATIENT NAME: NARCISA ROBLES MEDICAL RECORD: [id number] :59 LOCATION:[facility] C[facility]O07 ADMISSION DATE:05/20/20 SURGEON: ANAHY GONZALEZ MD DATE OF OPERATION: 05/20/2020 SURGEON: Anahy Gonzalez MD PROCEDURE PERFORMED: Right thoracotomy with resection of chest wall tumor. PREOPERATIVE DIAGNOSIS: Fibromatosis. POSTOPERATIVE DIAGNOSIS: Fibromatosis. ANESTHESIA: General endotracheal anesthesia, double lumen. SPECIMENS: Resected chest wall. PROCEDURE COMPLICATIONS: None. DISPOSITION: ICU. CONDITION: Stable. BLOOD LOSS: 20 cc. FINDINGS: 1. Dense adhesions of the lung to the old resection site. 2. Intercostal tissue resected back to the large paraspinous veins and sent for permanent specimen. Further resection would require prone position for adequate medial margins. 3. Small air leak intraoperatively, none in ICU. OPERATIVE INDICATION: The patient with neurogenic tumor diagnosis, which turned out to be fibromatosis with positive margins. DESCRIPTION OF PROCEDURE: The patient was brought to the operating suite, double lumen endotracheal in position, left lateral decubitus position. The old sutures were removed. Chest was entered. The lung was swept away except for the dense adhesions at the site of the previous resection which had to be removed sharply. Lung was coagulated later. Progel was used for hemostasis and for sealant on the lung. The tumor was resected between the ribs and clips were used on the intercostal bundle. The patient was made hemostatic. Local Floseal was used. Hemostasis was ensured. Two chest tubes were placed. The chest was closed with muscle layer, subcutaneous, subcuticular. The patient is stable to ICU. TRANSINT:[id number] Voice Confirmation ID: [id number] DOCUMENT ID: [id number] OPERATIVE REPORT [id number] NARCISA ROBLES ANAHY GONZALEZ MD at 1032 CC: [id number] DICTATION DATE: 05/20/20 1002 CONTENT WRITER: 05/20/20 1825 ADM IN [place] [id number] [place] [id number]
--- NOTE | 2020-05-23 11:30 | NUR ---
DR. FRANZ HERE. ANTERIOR AND POSTERIOR CHEST TUBES REMOVED. BETADINE OINTMENT, STERILE 4X4S AND TEGADERM OCCLUSIVE DRESSING APPLIED. INCISION DRESSING REMOVED AND LEFT OPEN TO AIR. SADE WITH ANESTHESIA NOTIFIED TO REMOVE EPIDURAL ANALGESIA.
--- NOTE | 2020-05-23 12:05 | NUR ---
EPIDURAL ANALGESIA D/C'D BY ANESTHESIA.
--- NOTE | 2020-05-23 12:45 | NUR ---
LYN CATHETER D/C'D. OOB TO BATHROOM WITH ASSISTANCE. NO DIZZINESS.
--- NOTE | 2020-05-23 15:00 | NUR ---
NUTRITION FOLLOW UP COMMENTS: Patient with nursing and curtain closed during visit. Patient has been eating well. Patient has not had a BM since admit. Weight is trending up since admit. DIET: Regular Diet PO INTAKE: 90% avg per last 5 meals WEIGHT: 233 lbs on 05/23 BM: None recorded since admit SIG MEDS: Protonix, Miralax, Reglan SIG LABS: Na-135(L), Calcium-8.1(L), Albumin-2.1(L), GFR-59(L) POC Glucose- 142, 131, 143 RECOMMENDATIONS: Continue current diet as tolerated Offer nutritional supplements if PO intake becomes < 50% avg for meals RD to continue to follow and monitor patient DHS
--- NOTE | 2020-05-23 17:00 | NUR ---
AMBULATING NEEDED TO BATHROOM. GAIT IS STEADY. DENIES DIZZINESS OR WEAKNESS. UP IN CHAIR FOR MEAL. CUPOLA REPAIRER ATTACHED TO MAINTAIN MONITORING OF RHYTHM WHILE UP IN ROOM.
--- NOTE | 2020-05-23 19:40 | NUR ---
REPORT REC'D AND CARE ASSUMED, REC'D PT SITTING UP IN RECLINER WATCHING TV, SPO2 98% ON ROOM AIR BP CUFF OFF AT THIS TIME, RIGHT DLSCL DRSG CDI SALINE LOCKED, RIGHT LATERAL DRSG CDI, MAMARCELLA, PT REQUESTING PAIN PILL AND EVENING MEDS SO SHE CAN GO TO BED, CALL LIGHT IN REACH.
--- NOTE | 2020-05-23 21:00 | NUR ---
EVENING MEDS AND PAIN MEDICATION PROVIDED, PT ASSISTED BACK TO BED, AGREEABLE TO HAVING BP CUFF PLACED ON WHILE SLEEPING, BLANKET PROVIDED ON REQUEST, PT DENIES OTHER NEEDS.
--- NOTE | 2020-05-23 22:05 | MORECARE ---
CASE MANAGEMENT DISCHARGE SUMMARY PATIENT: NARCISA ROBLES UNIT: [id number] ADM DATE: 05/20/20 AGE: 65 : [birth year] SEX: F ROOM/BED: [facility] AUTHOR: NELLA YOU PHYSICIAN: REFERRING PHYSICIAN: ANAHY MEI MD DATE OF SERVICE: 05/23/20 Discharge Plan Patient Name: NARCISA ROBLES Facility: [facility]:[place] : 1955 Planned Disposition: Home Anticipated Discharge Date: Discharge Date: Expected LOS: Initial Reviewer: [email or web address] Initial Review Date: 05/20/2020 Generated: 05/23/20 11:04 pm Patient Name: NARCISA ROBLES Page 05006 at 2205 All edits/amendments must be made on the electronic document DICTATION DATE: 05/23/202203 ENVIRONMENTAL MONITORING SPECIALIST: GINNY 05/23/202203 RPT#: [id number] [place] DATE: STATUS: ADM IN [facility] [address] [place] [address] END OF REPORT
--- NOTE | 2020-05-23 22:11 | MORECARE ---
CASE MANAGEMENT DISCHARGE SUMMARY PATIENT: NARCISA ROBLES UNIT: [id number] ADM DATE: 05/20/20 AGE: 65 : 59 SEX: F ROOM/BED: D[facility] AUTHOR: KENYATTA,DOC PHYSICIAN: REFERRING PHYSICIAN: ANAHY MEI MD DATE OF SERVICE: 05/23/20 Discharge Plan Patient Name: NARCISA ROBLES Facility: [facility]:[place] : 1955 Planned Disposition: Home Anticipated Discharge Date: Discharge Date: Expected LOS: Initial Reviewer: [email or web address] Initial Review Date: 05/20/2020 Generated: 05/23/20 11:11 pm Comments DCP- Discharge Planning Updated by [email or web address]: Gloria Arroyo on 05/23/20 9:[address] Patient Name: NARCISA ROBLES Admission Status: Elective Accout number: [id number] Admission Date: 05-20-2020 : 1955 Admission Diagnosis:OTHER FIBROBLASTIC DISORDERS Attending: ANAHY MEI Current LOS: 3 Anticipated DC Date: Planned Disposition: Home Primary Insurance: [place] PRIVATE OPTIONS G[place] Discharge Planning Comments: CM met with patient to complete initial dc planning assessment. CM educated patient on the CM role and verbal consent given by patient to complete assessment. Patient lives at home alone. Patient is independent. At discharge patient plans to return home and feels this is a safe discharge. CM discussed availability of home health, rehab services, and medical equipment. Patient will have family to transport home. Patient denied known discharge needs at this time. CM will continue to follow and will assist as needed with dc plans/needs. Security Sme: Gloria Arroyo DCPIA - Discharge Planning Initial Assessment Updated by [email or web address]: Gloria Arroyo on 05/23/20 10:06 pm * Is the patient Alert and Oriented? Yes * How many steps to enter\exit or inside your home? * PCP [facility] * [facility] * Preadmission Environment Home Alone * ADLs Independent * Equipment None * List name and contact numbers for known caregivers / representatives who currently or will assist patient after discharge: LUPILLO AUSTIN [phone] * Verbal permission to speak to the caregivers and representatives has been obtained from the patient. Yes * Community resources currently utilized None * Additional services required to return to the preadmission environment? No * Can the patient safely return to the preadmission environment? Yes * Has this patient been hospitalized within the prior 30 days at any hospital? Yes Last DP export: 05/23/20 9:05 p Patient Name: NARCISA ROBLES Page 09599 at 2211 All edits/amendments must be made on the electronic document DICTATION DATE: 05/23/202210 CONTENT SPECIALIST: GINNY 05/23/202210 RPT#: [id number] DC DATE: STATUS: ADM IN [facility] [address] [place] [address] END OF REPORT
[2020-05-24] VITALS (9 sets, daily range): BP systolic 140–164; BP diastolic 68–93
--- NOTE | 2020-05-24 00:30 | NUR ---
PT ASSISTED UP TO THE BATHROOM AND RECONNECTED MONITOR TO RETURN TO BED, EXTRA BLANKET PROVIDED FOR COMFORT, VSS.
[2020-05-24 06:42] LABS: HEMATOCRIT 33.6 % (36.0-48.0); HEMOGLOBIN 10.6 g/dL (12-16); MCH 25.3 pg (26.0-34.0); MCHC 31.5 g/dL (31.0-37.0); MCV 80.2 fL (80.0-100.0); RBC 4.19 10x6/uL (4.00-5.40); RDW 14.2 % (11.5-14.5); WBC 9.7 10x3/uL (4.8-10.8)
[2020-05-24 06:57] LABS: ALBUMIN 2.3 g/dL (3.4-5.0); ANION GAP 10.9 mmol/L (8-16); BILIRUBIN - TOTAL 0.25 mg/dL (0.2-1.3); CALCIUM 8.4 mg/dL (8.5-10.1); CARBON DIOXIDE 26.3 mmol/L (21.0-32.0); CREATININE - SERUM 0.9 mg/dL (0.6-1.3); POTASSIUM - SERUM 4.2 mmol/L (3.5-5.1); PROTEIN - SERUM 6.6 g/dL (6.4-8.2)
--- NOTE | 2020-05-24 08:00 | NUR ---
UP IN CHAIR AT BEDSIDE. DENIES PAIN. DRESSINGS DRY AND INTACT. READY TO GO HOME. ATE FAIR AT BREAKFAST. RIGHT SUBCLAVIAN CATH DRESSING DRY AND INTACT. AMBULATES TO BATHROOM INDEPENDENTLY. INSULIN GIVEN
[2020-05-24] MEDS ORDERED: ULTRAM50 MG PO (10:28)
--- NOTE | 2020-05-24 10:40 | NUR ---
RIGHT SUBCLAVIAN CATH REMOVED. PRESSURE HELD X 5 MIN. NO BLEEDING OR BRUSING AT SITE. GAUZE WITH TELGRADERM APPLIED. PATIENT TOLERATED FAIR.
--- NOTE | 2020-05-24 15:30 | MORECARE ---
CASE MANAGEMENT DISCHARGE SUMMARY PATIENT: NARCISA ROBLES UNIT: [id number] ADM DATE: 05/20/20 AGE: 65 : [birth year] SEX: F ROOM/BED: [facility] AUTHOR: NELLA YOU PHYSICIAN: REFERRING PHYSICIAN: ANAHY MEI MD DATE OF SERVICE: 05/24/20 Discharge Plan Patient Name: NARCISA ROBLES Facility: [facility]:[place] : 1955 Planned Disposition: Home Anticipated Discharge Date: Discharge Date: 05/24/2020 Expected LOS: Initial Reviewer: [email or web address] Initial Review Date: 05/20/2020 Generated: 05/24/20 4:30 pm Comments DCP- Discharge Planning Updated by [email or web address]: Kushal Hinton on 05/24/20 2:[address] Patient Name: NARCISA ROBLES Encounter No: [id number] : 1955 Primary Insurance: [employer] GARY Anticipated DC Date: Planned Disposition: Home External Planned Provider: : DCP follow-up note: Visit with Patient in her room, No needs at this time. Patient states she has no need for HH, SNF, IPR, or DME at this time. Patient and family in agreement with discharge plan. No changes to plan. Case management will follow and assist as needed. Kushal Hinton DCP- Discharge Planning Updated by [id number]: Gloria Arroyo on 05/23/20 9:[address] Patient Name: NARCISA ORBLES Admission Status: Elective Accout number: [id number] Admission Date: 05-20-2020 : 1955 Admission Diagnosis:OTHER FIBROBLASTIC DISORDERS Attending: ANAHY MEI Current LOS: 3 Anticipated DC Date: Planned Disposition: Home Primary Insurance: [employer] GARY Discharge Planning Comments: CM met with patient to complete initial dc planning assessment. CM educated patient on the CM role and verbal consent given by patient to complete assessment. Patient lives at home alone. Patient is independent. At discharge patient plans to return home and feels this is a safe discharge. CM discussed availability of home health, rehab services, and medical equipment. Patient will have family to transport home. Patient denied known discharge needs at this time. CM will continue to follow and will assist as needed with dc plans/needs. Oiler Bander: Gloria Arroyo DCPIA - Discharge Planning Initial Assessment Updated by [email or web address]: Gloria Arroyo on 05/23/20 10:06 pm * Is the patient Alert and Oriented? Yes * How many steps to enter\exit or inside your home? * PCP [facility] * Pharmacy [facility] * Preadmission Environment Home Alone * ADLs Independent * Equipment None * List name and contact numbers for known caregivers / representatives who currently or will assist patient after discharge: LUPILLO AUSTIN - [phone] * Verbal permission to speak to the caregivers and representatives has been obtained from the patient. Yes * Community resources currently utilized None * Additional services required to return to the preadmission environment? No * Can the patient safely return to the preadmission environment? Yes * Has this patient been hospitalized within the prior 30 days at any hospital? Yes Coverage Notice Reviewer: [id number] Elisa Hinton Notice Issued Date-Time: 05/24/2020 9:15 Notice Type: Patient Choice Letter Notice Delivered To: Patient Relationship to Patient: Self Risk Management Analyst Name: Delivery Method: HAND - Hand Delivered Alysha Days: Prior Verbal Notification: Recipient Understood Notice: Yes Recipient Signature: Yes Med Rec Note Co-signed by Attending: Coverage Notice Comment: Patient refused HH, SNF, IPR, and DME at this time Last DP export: 05/23/20 9:11 p Patient Name: NARCISA ROBLES Page [id number] at 1530 All edits/amendments must be made on the electronic document DICTATION DATE: 05/24/20 1530 LOGISTICS PROGRAM MANAGER: GINNY 05/24/20 1530 RPT#: [id number] DC DATE:05/24/20 STATUS: DIS IN [facility] [address] [place] [address] END OF REPORT
--- NOTE | 2020-05-26 09:04 | MORECARE ---
CASE MANAGEMENT DISCHARGE SUMMARY PATIENT: NARCISA ROBLES UNIT: [id number] ADM DATE: 05/20/20 AGE: 65 : [birth year] SEX: F ROOM/BED: [facility] AUTHOR: NELLA YOU PHYSICIAN: REFERRING PHYSICIAN: ANAHY MEI MD DATE OF SERVICE: 05/26/20 Discharge Plan Patient Name: NARCISA ROBLES Facility: [facility]:[place] : 1955 Planned Disposition: Home Anticipated Discharge Date: Discharge Date: 05/24/2020 Expected LOS: Initial Reviewer: [email or web address] Initial Review Date: 05/20/2020 Generated: 05/26/20 10:03 am Comments DCP- Discharge Planning Updated by [email or web address]: Kushal Hinton on 05/24/20 2:[address] Patient Name: NARCISA ROBLES Encounter No: [id number] : 1955 Primary Insurance: [email or web address] GARY Anticipated DC Date: Planned Disposition: Home External Planned Provider: : DCP follow-up note: Visit with Patient in her room, No needs at this time. Patient states she has no need for HH, SNF, IPR, or DME at this time. Patient and family in agreement with discharge plan. No changes to plan. Case management will follow and assist as needed. Kushal Carrollnes DCP- Discharge Planning Updated by [id number]: Gloria Arroyo on 05/23/20 9:[address] Patient Name: NARCISA ROBLES Admission Status: Elective Accout number: [id number] Admission Date: 05-20-2020 : 1955 Admission Diagnosis:OTHER FIBROBLASTIC DISORDERS Attending: ANAHY MEI Current LOS: 3 Anticipated DC Date: Planned Disposition: Home Primary Insurance: [email or web address] GARY Discharge Planning Comments: CM met with patient to complete initial dc planning assessment. CM educated patient on the CM role and verbal consent given by patient to complete assessment. Patient lives at home alone. Patient is independent. At discharge patient plans to return home and feels this is a safe discharge. CM discussed availability of home health, rehab services, and medical equipment. Patient will have family to transport home. Patient denied known discharge needs at this time. CM will continue to follow and will assist as needed with dc plans/needs. Magnet Valve Assembler: Gloria Arroyo DCPIA - Discharge Planning Initial Assessment Updated by [id number]: Gloria Arroyo on 05/23/20 10:06 pm * Is the patient Alert and Oriented? Yes * How many steps to enter\exit or inside your home? * PCP [place] * Pharmacy [facility] * Preadmission Environment Home Alone * ADLs Independent * Equipment None * List name and contact numbers for known caregivers / representatives who currently or will assist patient after discharge: LUPILLO AUSTIN - [phone] * Verbal permission to speak to the caregivers and representatives has been obtained from the patient. Yes * Community resources currently utilized None * Additional services required to return to the preadmission environment? No * Can the patient safely return to the preadmission environment? Yes * Has this patient been hospitalized within the prior 30 days at any hospital? Yes Coverage Notice Reviewer: [email or web address] Elisa Hinton Notice Issued Date-Time: 05/24/2020 9:15 Notice Type: Patient Choice Letter Notice Delivered To: Patient Relationship to Patient: Self V Belt Mold Assembler And Curer Name: Delivery Method: HAND - Hand Delivered Alysha Days: Prior Verbal Notification: Recipient Understood Notice: Yes Recipient Signature: Yes Med Rec Note Co-signed by Attending: Coverage Notice Comment: Patient refused HH, SNF, IPR, and DME at this time Last DP export: 05/24/20 2:31 p Patient Name: NARCISA ROBLES Page [id number] at 0904 All edits/amendments must be made on the electronic document DICTATION DATE: 05/26/20902 CEO NA: GINNY 05/26/20902 RPT#: [id number] DC DATE:05/24/20 STATUS: DIS IN [facility] [address] [place] [address] END OF REPORT
== END 2020-05-24 12:00 | disposition home or self-care (01) | DRG 496 ==
LOC: D.SDCHOLD 05-19 14:00 → D.CVICU 05-20 05:00 → D.SDCHOLD 05-20 14:45 → D.CVICU 05-24 12:00
PROVIDERS: ADMIT Thoracic Surgery (Cardiothoracic Vascular Surgery); ATTEND Thoracic Surgery (Cardiothoracic Vascular Surgery)
PROC: 0WB80ZZ Excision of Chest Wall, Open Approach (ICD-10-PCS; principal; 2020-05-20 07:30)
DX: D48.1 Neoplasm of uncertain behavior of connective and other soft tissue (principal); J93.82 Other air leak; M72.8 Other fibroblastic disorders; I25.10 Atherosclerotic heart disease of native coronary artery without angina pectoris; E11.40 Type 2 diabetes mellitus with diabetic neuropathy, unspecified; M06.9 Rheumatoid arthritis, unspecified; E66.9 Obesity, unspecified; E78.5 Hyperlipidemia, unspecified; I10 Essential (primary) hypertension; Z95.5 Presence of coronary angioplasty implant and graft; I25.2 Old myocardial infarction; Z79.4 Long term (current) use of insulin; E11.621 Type 2 diabetes mellitus with foot ulcer

== ENCOUNTER → 2021-01-05 13:31 | Outpatient (CLI) | payer MEDICAID ==
[2020-05-21 12:24] VITALS: BMI 38.5
== END | disposition home or self-care (01) ==
LOC: D.CT 13:31
PROVIDERS: ATTEND Thoracic Surgery (Cardiothoracic Vascular Surgery)
DX: R22.2 Localized swelling, mass and lump, trunk (principal)

== ENCOUNTER → 2021-02-09 10:46 | Outpatient (CLI) | payer MEDICAID ==
[2020-05-21 12:24] VITALS: BMI 38.5
--- NOTE | ~2021-02-09 | EC ---
PATIENT:NARCISA ROBLES DATE OF SERVICE: 02/09/21 SEX: F MEDICAL RECORD: [id number] DATE OF : [birth year] LOCATION:[facility] AGE OF PATIENT: 65 ADMISSION DATE: 02/09/21 REFERRING PHYSICIAN: INTERPRETING PHYSICIAN: OBDULIO NOBLES MD ECHOCARDIOGRAM REPORT ECHO CHARGES 4 ECHO COMPLETE Date: 02/09/21 CLINICAL DIAGNOSIS: CAD/HTN ASSESS EF AND MITRAL REGURG ECHOCARDIOGRAPHIC MEASUREMENTS (adult normal given) AC root (d.<3.7cm) 2.9 cm LV Septum d (<1.2 cm> 1.4 cm Valve Excursion 1.4 cm LV Septum (systole) 1.6 cm Left Atria (s.<4.0cm> 3.3 cm LVPW d(<1.2cm) 1.2 cm RV (d.<2.3cm) 3.6 cm LVPW (sytole) 1.5 cm LV diastole(<5.6CM) 3.4 cm MV E-F(>70mm/sec) cm LV systole 1.8 cm LVOT Diameter 1.6 cm MV exc.(>10mm) 1.2 cm Est.ejection fraction (50-75%) % DOPPLER: LVIT cm/sec A 110.0cm/sec E 79.0 cm/sec LA cm/sec RVSP 19 mmHg LVOT 124 cm/sec AOP1/2T m/s Asc. Ao 196 cm/sec RVOT 66 cm/sec RA cm/sec PA 96 cm/sec AV Gradient Peak 15.41mmHg AV Mean 8.26 mmHg AV Area 1.4 cm MV Gradient Peak 5.95 mmHg MV Mean 2.79 mmHg MV Area cm COMMENTS: Rework Operator: 2 DANNY ARCHULETA Security Vehicle Patrol Officer: 3 Dr. Joe TAPE# PACS Pericardial Effusion N DATE OF SERVICE: Adequate 2D, color flow imaging, spectral Doppler, and M-Mode. Mild LVH. LV internal dimensions are normal. Wall motion normal. EF greater than or equal to 55%. Aortic valve is sclerotic. No evidence of stenosis by Doppler interrogation. Left atrium is normal at 3.3 cm. Mitral valve shows no prolapse. Trivial MR. Right-sided chambers are grossly normal. Trivial TR. TRANSINT:[id number] Voice Confirmation ID: [id number] DOCUMENT ID: [id number] ECHOCARDIOGRAM REPORT [id number] NARCISA ROBLES GREGORY A MD CC: [id number] DICTATION DATE: 02/10/21 1447 FACIAL OPERATOR: 02/11/21 0011 DEP CLI 02/09/21 [place] [id number]
== END | disposition home or self-care (01) ==
LOC: D.HCCECHO 10:46
PROVIDERS: ATTEND Internal Medicine Interventional Cardiology
DX: I25.10 Atherosclerotic heart disease of native coronary artery without angina pectoris (principal)

== ENCOUNTER 2021-03-02 15:45 | Outpatient (CLI) | payer BC ==
[2020-05-21 12:24] VITALS: BMI 38.5
== END 2021-03-02 23:59 | disposition home or self-care (01) ==
LOC: D.MAMMO 15:45
PROVIDERS: ATTEND Family Medicine Adult Medicine
DX: Z12.31 Encounter for screening mammogram for malignant neoplasm of breast (principal)